=== PATIENT | female | born 1945 | race Caucasian/White ===

== ENCOUNTER 2023-04-17 12:20 | Outpatient (RCR) | payer MEDICARE, OTHER, SELFPAY | END 2023-04-17 23:59 | disposition home or self-care (01) | LOC: RPT 12:20 | PROVIDERS: ATTENDING PHYSICIAN Family Medicine | DX: H81.10 Benign paroxysmal vertigo, unspecified ear (principal); R42 Dizziness and giddiness; Z73.6 Limitation of activities due to disability; R26.2 Difficulty in walking, not elsewhere classified | CPT/HCPCS: 97112; 97163 ==

== ENCOUNTER 2023-04-28 10:00 | Outpatient (RCR) | payer MEDICARE, OTHER, SELFPAY | END 2023-04-28 23:59 | disposition home or self-care (01) | LOC: RPT 10:00 | PROVIDERS: ATTENDING PHYSICIAN Family Medicine | DX: H81.10 Benign paroxysmal vertigo, unspecified ear (principal); R42 Dizziness and giddiness; Z73.6 Limitation of activities due to disability | CPT/HCPCS: 97112 ==

== ENCOUNTER 2023-05-02 06:38 | Day surgery (SDC) | payer MEDICARE, OTHER, SELFPAY ==
[2023-05-02] VITALS (10 sets, daily range): BP systolic 2–180; BP diastolic 76–91; BMI 44.9
[2023-05-02] MEDS: NORMOSOL-R 1000 IV (13:46)
[2023-05-02] MEDS: DETROL LA 4 MG PO (16:48)
[2023-05-02] MEDS: Pyridium 200 MG PO (16:48)
[2023-05-07 17:32] LABS: Stone Analysis Mass 8 mg
== END 2023-05-02 17:40 | disposition home or self-care (01) ==
LOC: SDS 06:38
PROVIDERS: ATTENDING PHYSICIAN Surgery
DX: N20.0 Calculus of kidney (principal)
CPT/HCPCS: 52356; 74018; 76000; 82365; 93005; A4300; C1758; C1769; C1894; C2617

== ENCOUNTER → 2023-09-02 08:24 | Outpatient (REF) | payer MEDICARE, OTHER, SELFPAY | LOC: HWRAD 08:24 | PROVIDERS: ATTENDING PHYSICIAN Surgery; FAMILY PHYSICIAN Family Medicine | DX: N13.2 Hydronephrosis with renal and ureteral calculous obstruction (principal) | CPT/HCPCS: 76775 ==

== ENCOUNTER → 2023-12-16 13:12 | Outpatient (REF) | payer MEDICARE, OTHER, SELFPAY | LOC: HWWDC 13:12 | PROVIDERS: ATTENDING PHYSICIAN Family Medicine | DX: Z12.31 Encounter for screening mammogram for malignant neoplasm of breast (principal) | CPT/HCPCS: 77063; 77067 ==

== ENCOUNTER → 2024-03-22 08:45 | Outpatient (REF) | payer MEDICARE, OTHER, SELFPAY ==
[2024-03-22 09:44] LABS: % Basophils 0.4 % (0-2); % Eosinophils 3.4 % (0-6); % Immature Granulocytes 0.3 % (0-0.5); % Lymphocytes 25.6 % (20.5-51.1); % Monocytes 8.8 % (1.7-9.3); % Neutrophils 61.5 % (42.2-75.2); Absolute Eosinophils 0.2 10^3/uL (0-0.7); Absolute Lymphocytes 1.7 10^3/uL (1.2-3.4); Absolute Monocytes 0.6 10^3/uL (0.1-0.6); Absolute Neutrophils 4.1 10^3/uL (1.4-6.5); Hematocrit 44.3 % (37.0-47.0); Hemoglobin 14.1 g/dL (12.0-16.0); Mean Corp Hgb Conc. 31.8 g/dL (33.0-37.0); Mean Corpuscular Hgb 29.7 pg (27.0-31.0); Mean Corpuscular Volume 93.3 fL (81.0-99.0); Mean Platelet Volume 9.5 fL (7.4-10.4); Nucleated Red Blood Cells % 0 %; Platelet Count 242 10^3/uL (130-400); Red Blood Cell Count 4.75 10^6/uL (4.20-5.40); Red Cell Dist. Width 13.5 % (11.5-14.5); White Blood Cell Count 6.7 10^3/uL (4.8-10.8)
[2024-03-22 10:19] LABS: Glycohemoglobin (HgbA1c) 6.5 % (4.0-5.6)
[2024-03-22 10:26] LABS: ALT (SGPT) 50 U/L (0-35); AST (SGOT) 44 U/L (14-36); Albumin 3.9 g/dl (3.5-5.0); Alkaline Phosphatase 59 U/L (38-126); Blood Urea Nitrogen 16 mg/dl (7-17); Calcium 9.4 mg/dl (8.4-10.2); Carbon Dioxide 29 mmol/L (22-30); Chloride 102 mmol/L (98-107); Glucose 125 mg/dl (70-99); HDL Cholesterol 50 mg/dl; LDL Cholesterol, Calculated 94 mg/dl; Potassium 4.3 mmol/L (3.5-5.1); Sodium 140 mmol/L (135-145); Total Bilirubin 0.4 mg/dl (0.2-1.3); Total Cholesterol 169 mg/dl (50-199); Total Protein 6.9 g/dl (6.3-8.2); Triglyceride 128 mg/dl (10-149); Very Low Density Lipoprotein 25 mg/dl (0-30); eGFR > 60.00
[2024-03-22 10:48] LABS: TSH 1.09 uIU/ml (0.47-4.68)
== END ==
LOC: REG 08:45
PROVIDERS: ATTENDING PHYSICIAN Family Medicine
DX: Z00.00 Encounter for general adult medical examination without abnormal findings (principal); Z13.220 Encounter for screening for lipoid disorders; R79.89 Other specified abnormal findings of blood chemistry; E11.9 Type 2 diabetes mellitus without complications
CPT/HCPCS: 36415; 80053; 80061; 82043; 83036; 84443; 85025

== ENCOUNTER → 2024-04-12 10:31 | Outpatient (REF) | payer MEDICARE, OTHER, SELFPAY | LOC: EMG 10:31 | PROVIDERS: ATTENDING PHYSICIAN Physician Assistant; FAMILY PHYSICIAN Family Medicine | DX: M25.532 Pain in left wrist (principal); G56.01 Carpal tunnel syndrome, right upper limb | CPT/HCPCS: 95886; 95911 ==

== ENCOUNTER 2024-04-20 15:12 | Outpatient (RCR) | payer MEDICARE, OTHER, SELFPAY | END 2024-04-20 23:59 | disposition home or self-care (01) | LOC: ROT 15:12 | PROVIDERS: ATTENDING PHYSICIAN Physician Assistant; FAMILY PHYSICIAN Family Medicine | DX: S52.592D Other fractures of lower end of left radius, subsequent encounter for closed fracture with routine healing (principal); Z73.6 Limitation of activities due to disability; G56.03 Carpal tunnel syndrome, bilateral upper limbs | CPT/HCPCS: 97018; 97110; 97166; 97535 ==

== ENCOUNTER 2024-05-03 14:05 | Outpatient (RCR) | payer MEDICARE, OTHER, SELFPAY | END 2024-05-03 23:59 | disposition home or self-care (01) | LOC: ROT 14:05 | PROVIDERS: ATTENDING PHYSICIAN Physician Assistant; FAMILY PHYSICIAN Family Medicine | DX: S52.592D Other fractures of lower end of left radius, subsequent encounter for closed fracture with routine healing (principal); Z73.6 Limitation of activities due to disability; G56.03 Carpal tunnel syndrome, bilateral upper limbs; M19.042 Primary osteoarthritis, left hand | CPT/HCPCS: 97018; 97110 ==

== ENCOUNTER 2024-06-04 19:47 | Inpatient (IN) | payer MEDICARE, OTHER, SELFPAY ==
[2024-06-04] VITALS (7 sets, daily range): BP systolic 139–163; BP diastolic 63–95; BMI 39.6
[2024-06-04 11:22] LABS: % Basophils 0.2 % (0-2); % Eosinophils 0.3 % (0-6); % Immature Granulocytes 0.2 % (0-0.5); % Lymphocytes 7.3 % (20.5-51.1); % Monocytes 11.7 % (1.7-9.3); % Neutrophils 80.3 % (42.2-75.2); Absolute Lymphocytes 0.6 10^3/uL (1.2-3.4); Hematocrit 40.1 % (37.0-47.0); Hemoglobin 13.4 g/dL (12.0-16.0); Mean Corp Hgb Conc. 33.4 g/dL (33.0-37.0); Mean Corpuscular Hgb 29.7 pg (27.0-31.0); Mean Corpuscular Volume 88.9 fL (81.0-99.0); Mean Platelet Volume 10.3 fL (7.4-10.4); Nucleated Red Blood Cells % 0 %; Platelet Count 164 10^3/uL (130-400); Red Blood Cell Count 4.51 10^6/uL (4.20-5.40); Red Cell Dist. Width 13.8 % (11.5-14.5); White Blood Cell Count 8.8 10^3/uL (4.8-10.8)
[2024-06-04 11:31] LABS: ALT (SGPT) 58 U/L (0-35); AST (SGOT) 85 U/L (14-36); Albumin 3.2 g/dl (3.5-5.0); Alkaline Phosphatase 60 U/L (38-126); Blood Urea Nitrogen 36 mg/dl (7-17); Calcium 9.2 mg/dl (8.4-10.2); Carbon Dioxide 26 mmol/L (22-30); Chloride 101 mmol/L (98-107); Glucose 131 mg/dl (70-99); Lipase 34 U/L (23-300); Potassium 3.8 mmol/L (3.5-5.1); Sodium 136 mmol/L (135-145); Total Bilirubin 0.8 mg/dl (0.2-1.3); Total Protein 6.3 g/dl (6.3-8.2); eGFR > 60.00
--- NOTE | 2024-06-04 12:00 | ED.GENMED ---
History of Present Illness
<Cassie Rao, ACTIVITIES ATTENDANT - Last Filed: 06/05/24 10:27>
General
Chief Complaint: Weakness
Source: patient
Exam Limitations: none
Time Seen by Provider: 06/04/24 11:59
Nursing documentation reviewed up to this point in time: agreed with
History of Present Illness
History of Present Illness:
78-year-old female with history of neuropathy, vertigo, chronic bronchitis, CPAP, HTN, depression presents from [facility] for4 4 days of R flank pain, fever, chills, weakness, dry heaves, diarrhea. Last stool 2 hours ago. No known sick contacts,
no recent antibiotic use.
Past History
<Cassie Rao, ACTIVITIES ATTENDANT - Last Filed: 06/05/24 10:27>
Past History
ED Past Medical History: HTN, Other (Sleep apnea, uses CPAP) and Other (Kidney stones with lithotripsy)
ED Past Surgical History: Gynecological and Orthopedic
Social History
Tobacco: Non-smoker
Alcohol: Other
Drug: None
Personal:
Living: with family
Employment: Retired
Family History
Family History: Other
Review of Systems
<Cassie Rao, ACTIVITIES ATTENDANT - Last Filed: 06/05/24 10:27>
Review of Systems
Allergies reviewed?: Yes
All Other Systems: ROS reviewed and negative except as documented in HPI and ROS
Constitutional: Reports fever, fatigue and chills
Respiratory: Denies cough or trouble breathing
Cardiac: Denies chest pain
ABD/GI: Reports nausea, diarrhea and anorexia; Denies abdominal pain, bloody stools or black stools
: Reports flank pain (Right); Denies dysuria, frequency, difficulty voiding or urgency
Musculoskeletal: Reports no symptoms
Skin: Reports no symptoms
Neurological: Reports no symptoms
Phy Exam
<Cassie Rao, ACTIVITIES ATTENDANT - Last Filed: 06/05/24 10:27>
Physical Exam
Physical Exam:
GENERAL: No acute distress. A&Ox3.
CONSTITUTIONAL: Afebrile.
EYES: clear, conjunctivae normal
ENMT: Dry mucus membranes, Pharynx nl
RESPIRATORY: Regular respirations, nonlabored, lungs clear.
CARDIOVASCULAR: Regular rate and rhythm, no murmurs, no rubs.
GI: Soft, obese, nontender, normal BS
MUSCULOSKELETAL: Moves with ease. Well perfused. No edema
SKIN: Warm, dry, pink
PSYCH: Normal mood and affect. Well kept, interactive and appropriate
NEUROLOGIC: Awake, alert and oriented. No focal neurological deficits
Course
<Cassie Rao, ACTIVITIES ATTENDANT - Last Filed: 06/05/24 10:27>
Orders/Labs/Results
Orders:
Orders
06/04/24 11:08
Complete Blood Count/With Diff Urgent
Comprehensive Metabolic Panel Urgent
Glycohemoglobin (HgbA1c) Urgent
Lipase Urgent
06/04/24 11:59
0.9% Sodium Chloride 1000 ml [Nss] 1,000 ml IV BOLUS
06/04/24 14:19
Urinalysis Reflex To Culture Urgent
Date Specimen was Collected: 06/04/24
Time Specimen was Collected: 11:02
Urine Microscopic Reflex Cult Urgent
Urine Culture Urgent
MARK ANTHONY Source: U
Specimen Description:
Date Specimen was Collected: 06/04/24
Time Specimen was Collected: 11:02
06/04/24 14:39
CT Abd/pel Without Iv Or Oral Urgent
Comment:
Reason For Exam: Left flank pain, fever, chills, hematures
06/04/24 14:52
Ketorolac [Toradol] 15 mg IV NOW STA
06/04/24 Dinner
BRAT
At Your Request: Full Participation
06/04/24 16:46
CefTRIAXone [Rocephin] 2,000 mg IV NOW STA
06/04/24 16:52
Ondansetron Injectable [Zofran] 4 mg IV NOW STA
06/04/24 17:13
Sterile Water [Sterile Water For Injection] 20 ml .ROUTE .STK-MED
06/04/24 17:15
Ketorolac [Toradol] 15 mg .ROUTE .STK-MED ONE
06/04/24 18:18
Blood Culture Q30M
MARK ANTHONY Source: Blood/Venous
Specimen Description:
Blood Culture Q30M
MARK ANTHONY Source: Blood/Venous
Specimen Description:
06/04/24 19:02
STOOL [C difficile Antigen & Toxins] Routine
MARK ANTHONY Source: Feces/Stool
Specimen Description:
Stool Culture Routine
MARK ANHTONY Source: Feces/Stool
Specimen Description:
Stool For WBC Routine
MARK ANTHONY Source: Feces/Stool
Specimen Description:
06/04/24 19:09
Norovirus by PCR Routine
MARK ANTHONY Source: Feces/Stool
Specimen Description:
06/04/24 19:15
Admit/Transfer Patient As Directed
Co-Sign Provider:
Level of Care: Inpatient admission
Assign to:: Medical/Surgical
Physician / Group: luciana wan
Diagnosis: acute r pyelo, acute diarrhea conc viral vs infectious
Reason for Hospitalization: acute r pyelo, acute diarrhea conc viral vs infectious
Expected length of stay greater than two midnights?: Yes
ELOS- Estimated Length of Stay in days: 3
I certify the patient meets the requirements for IP care: Yes
Code Status As Directed
Resuscitation Status: Full Code
06/04/24 19:19
PRN Pain Medication Management As Directed
May give lesser potent ordered pain med per pt: Yes
preference::
Protocol:: Medication orders for pain may be administered in a
manner that supports deferring to patient preference
when the pt is:
- Requesting an ordered lesser potent pain medication.
Least to most potent pain medications are defined
as: acetaminophen < NSAID < tramadol < opioids
(morphine, oxycodone, hydromorphone).
- Requesting a lesser dose of the same medication IF
ORDERED.
- Requesting a less intrusive route of administration
if both routes are prescribed by the provider (PO <
IV).
06/04/24 19:20
Precautions As Directed
Type of Precautions: Contact
Comment: diarrhea unclear source
06/04/24 19:22
Add On- LAB Urgent
Tests Added?: [email or web address]
06/04/24 19:29
COVID-19 Antigen Urgent
Source: Nasal Swab
Influenza A+B Rapid Molecular Urgent
MARK ANTHONY Source: Nasal Swab
Specimen Description:
06/04/24 20:52
0.9% Sodium Chloride 1000 ml [Nss] 1,000 ml IV 100 mls/hr
Acetaminophen [Tylenol] 650 mg PO Q4HPRN PRN
Ondansetron Injectable [Zofran] 4 mg IV Q6HPRN PRN
Oxycodone [Roxicodone] 5 mg PO Q4HPRN PRN
06/04/24 20:52
Activity As Directed
Activity Level: As Tolerated
Intake/ Output As Directed
Frequency: Per unit guidelines
Vital Signs As Directed
Frequency: Per unit guidelines
DX Deep Vein Thrombosis Video Routine
06/04/24 22:00
Brinzolamide [Azopt 1% Ophthalmic Suspension] See Dose Instructions BOTH EYES TID
Latanoprost [Xalatan Ophthalmic Solution] See Dose Instructions BOTH EYES HS
06/04/24 23:22
Ketorolac [Toradol] 15 mg IV Q6HPRN PRN
06/05/24 06:00
MRI Abdomen [MR Abdomen W/o & W Contrast] IN AM
Comment:
Reason For Exam: pancreatic tail cyst
OK for patient to be off Cardiac Monitoring for MRI: Yes
Recent pill cam endoscopy?: No
Pacemaker/Defibrillator?: No
06/05/24 06:32
Complete Blood Count/With Diff IN AM
Comprehensive Metabolic Panel IN AM
06/05/24 08:00
Aspirin Low Dose EC [Aspir Low (Enteric Coated)] 81 mg PO DAILY
Budesonide/Formoterol 160/4.5 [Symbicort 160/4.5 Mcg Inhaler] 2 puff INH R BID
Cholecalciferol (Vitamin D3) [VITAMIN D3 (cholecalciferol)] 25 mcg PO DAILY
Citalopram [Celexa] 20 mg PO DAILY
Losartan [Cozaar] 50 mg PO DAILY
Multivitamin [Theragran] 1 tablet PO DAILY
06/05/24 18:00
CefTRIAXone [Rocephin] 1,000 mg IV Q24H
Enoxaparin Sodium [Lovenox] 40 mg SC QPM
06/06/24 06:00
Complete Blood Count/With Diff IN AM
Comprehensive Metabolic Panel IN AM
06/07/24 06:00
Complete Blood Count/With Diff IN AM
Comprehensive Metabolic Panel IN AM
Abnormal Lab Results
06/04/24 06/04/24
11:08 14:19
Absolute Neuts (auto) 7.0 H 10^3/uL
(1.4-6.5)
Absolute Lymphs (auto) 0.6 L 10^3/uL
(1.2-3.4)
Absolute Monos (auto) 1.0 H 10^3/uL
(0.1-0.6)
Neutrophils % 80.3 H %
(42.2-75.2)
Lymphocytes % 7.3 L %
(20.5-51.1)
Monocytes % 11.7 H %
(1.7-9.3)
BUN 36 H mg/dl
(7-17)
Glucose 131 H mg/dl
(70-99)
Hemoglobin A1c 6.6 H %
(4.0-5.6)
AST 85 H U/L
(14-36)
ALT 58 H U/L
(0-35)
Albumin 3.2 L g/dl
(3.5-5.0)
Ur Occult Blood Reflex 4+ A
(Negative)
Urine Nitrite (Reflex) Positive A
(Negative)
Leukocyte Esterase Rfl 3+ A
(Negative)
Urine RBC 40-50 A /HPF
(0-2)
Urine WBC (Reflex) 80-90 A /HPF
(0-5)
Urine Bacteria (Reflex) Many A
(Negative)
Urine Albumin (Reflex) 3+ A
(Neg - Trace)
06/04/24 11:08
06/04/24 11:08
Vital Signs
Initial and Last Documented VS:
Initial Vital Signs
Temp Pulse Resp BP Pulse Ox
99.3 F 83 16 139/95 94
06/04/24 10:58 06/04/24 10:58 06/04/24 10:58 06/04/24 10:58 06/04/24 10:58
Last Documented Vital Signs
Temp Pulse Resp BP Pulse Ox
99.7 F 78 18 161/81 92
06/05/24 07:30 06/05/24 08:07 06/05/24 07:30 06/05/24 08:07 06/05/24 07:30
Dimalt;Jacoby Hung, DO - Last Filed: 06/04/24 16:53>
Orders/Labs/Results
Orders:
Orders
06/04/24 11:08
Complete Blood Count/With Diff Urgent
Comprehensive Metabolic Panel Urgent
Glycohemoglobin (HgbA1c) Urgent
Lipase Urgent
06/04/24 11:59
0.9% Sodium Chloride 1000 ml [Nss] 1,000 ml IV BOLUS
06/04/24 14:19
Urinalysis Reflex To Culture Urgent
Date Specimen was Collected: 06/04/24
Time Specimen was Collected: 11:02
Urine Microscopic Reflex Cult Urgent
Urine Culture Urgent
MARK ANTHONY Source: U
Specimen Description:
Date Specimen was Collected: 06/04/24
Time Specimen was Collected: 11:02
06/04/24 14:39
CT Abd/pel Without Iv Or Oral Urgent
Comment:
Reason For Exam: Left flank pain, fever, chills, hematures
06/04/24 14:52
Ketorolac [Toradol] 15 mg IV NOW STA
06/04/24 Dinner
BRAT
At Your Request: Full Participation
06/04/24 16:46
CefTRIAXone [Rocephin] 2,000 mg IV NOW STA
06/04/24 16:52
Ondansetron Injectable [Zofran] 4 mg IV NOW STA
06/04/24 17:13
Sterile Water [Sterile Water For Injection] 20 ml .ROUTE .STK-MED
06/04/24 17:15
Ketorolac [Toradol] 15 mg .ROUTE .STK-MED ONE
06/04/24 18:18
Blood Culture Q30M
MARK ANTHONY Source: Blood/Venous
Specimen Description:
Blood Culture Q30M
MARK ANTHONY Source: Blood/Venous
Specimen Description:
06/04/24 19:02
STOOL [C difficile Antigen & Toxins] Routine
MARK ANTHONY Source: Feces/Stool
Specimen Description:
Stool Culture Routine
MARK ANTHONY Source: Feces/Stool
Specimen Description:
Stool For WBC Routine
MARK ANTHONY Source: Feces/Stool
Specimen Description:
06/04/24 19:09
Norovirus by PCR Routine
MARK ANTHONY Source: Feces/Stool
Specimen Description:
06/04/24 19:15
Admit/Transfer Patient As Directed
Co-Sign Provider:
Level of Care: Inpatient admission
Assign to:: Medical/Surgical
Physician / Group: luciana wan
Diagnosis: acute r pyelo, acute diarrhea conc viral vs infectious
Reason for Hospitalization: acute r pyelo, acute diarrhea conc viral vs infectious
Expected length of stay greater than two midnights?: Yes
ELOS- Estimated Length of Stay in days: 3
I certify the patient meets the requirements for IP care: Yes
Code Status As Directed
Resuscitation Status: Full Code
06/04/24 19:19
PRN Pain Medication Management As Directed
May give lesser potent ordered pain med per pt: Yes
preference::
Protocol:: Medication orders for pain may be administered in a
manner that supports deferring to patient preference
when the pt is:
- Requesting an ordered lesser potent pain medication.
Least to most potent pain medications are defined
as: acetaminophen < NSAID < tramadol < opioids
(morphine, oxycodone, hydromorphone).
- Requesting a lesser dose of the same medication IF
ORDERED.
- Requesting a less intrusive route of administration
if both routes are prescribed by the provider (PO <
IV).
06/04/24 19:20
Precautions As Directed
Type of Precautions: Contact
Comment: diarrhea unclear source
06/04/24 19:22
Add On- LAB Urgent
Tests Added?: [email or web address]
06/04/24 19:29
COVID-19 Antigen Urgent
Source: Nasal Swab
Influenza A+B Rapid Molecular Urgent
MARK ANTHONY Source: Nasal Swab
Specimen Description:
06/04/24 20:52
0.9% Sodium Chloride 1000 ml [Nss] 1,000 ml IV 100 mls/hr
Acetaminophen [Tylenol] 650 mg PO Q4HPRN PRN
Ondansetron Injectable [Zofran] 4 mg IV Q6HPRN PRN
Oxycodone [Roxicodone] 5 mg PO Q4HPRN PRN
06/04/24 20:52
Activity As Directed
Activity Level: As Tolerated
Intake/ Output As Directed
Frequency: Per unit guidelines
Vital Signs As Directed
Frequency: Per unit guidelines
DX Deep Vein Thrombosis Video Routine
06/04/24 22:00
Brinzolamide [Azopt 1% Ophthalmic Suspension] See Dose Instructions BOTH EYES TID
Latanoprost [Xalatan Ophthalmic Solution] See Dose Instructions BOTH EYES HS
06/04/24 23:22
Ketorolac [Toradol] 15 mg IV Q6HPRN PRN
06/05/24 06:00
MRI Abdomen [MR Abdomen W/o & W Contrast] IN AM
Comment:
Reason For Exam: pancreatic tail cyst
OK for patient to be off Cardiac Monitoring for MRI: Yes
Recent pill cam endoscopy?: No
Pacemaker/Defibrillator?: No
06/05/24 06:32
Complete Blood Count/With Diff IN AM
Comprehensive Metabolic Panel IN AM
06/05/24 08:00
Aspirin Low Dose EC [Aspir Low (Enteric Coated)] 81 mg PO DAILY
Budesonide/Formoterol 160/4.5 [Symbicort 160/4.5 Mcg Inhaler] 2 puff INH R BID
Cholecalciferol (Vitamin D3) [VITAMIN D3 (cholecalciferol)] 25 mcg PO DAILY
Citalopram [Celexa] 20 mg PO DAILY
Losartan [Cozaar] 50 mg PO DAILY
Multivitamin [Theragran] 1 tablet PO DAILY
06/05/24 18:00
CefTRIAXone [Rocephin] 1,000 mg IV Q24H
Enoxaparin Sodium [Lovenox] 40 mg SC QPM
06/06/24 06:00
Complete Blood Count/With Diff IN AM
Comprehensive Metabolic Panel IN AM
06/07/24 06:00
Complete Blood Count/With Diff IN AM
Comprehensive Metabolic Panel IN AM
Abnormal Lab Results
06/04/24 06/04/24
11:08 14:19
Absolute Neuts (auto) 7.0 H 10^3/uL
(1.4-6.5)
Absolute Lymphs (auto) 0.6 L 10^3/uL
(1.2-3.4)
Absolute Monos (auto) 1.0 H 10^3/uL
(0.1-0.6)
Neutrophils % 80.3 H %
(42.2-75.2)
Lymphocytes % 7.3 L %
(20.5-51.1)
Monocytes % 11.7 H %
(1.7-9.3)
BUN 36 H mg/dl
(7-17)
Glucose 131 H mg/dl
(70-99)
Hemoglobin A1c 6.6 H %
(4.0-5.6)
AST 85 H U/L
(14-36)
ALT 58 H U/L
(0-35)
Albumin 3.2 L g/dl
(3.5-5.0)
Ur Occult Blood Reflex 4+ A
(Negative)
Urine Nitrite (Reflex) Positive A
(Negative)
Leukocyte Esterase Rfl 3+ A
(Negative)
Urine RBC 40-50 A /HPF
(0-2)
Urine WBC (Reflex) 80-90 A /HPF
(0-5)
Urine Bacteria (Reflex) Many A
(Negative)
Urine Albumin (Reflex) 3+ A
(Neg - Trace)
06/04/24 11:08
06/04/24 11:08
Vital Signs
Initial and Last Documented VS:
Initial Vital Signs
Temp Pulse Resp BP Pulse Ox
99.3 F 83 16 139/95 94
06/04/24 10:58 06/04/24 10:58 06/04/24 10:58 06/04/24 10:58 06/04/24 10:58
Last Documented Vital Signs
Temp Pulse Resp BP Pulse Ox
99.7 F 78 18 161/81 92
06/05/24 07:30 06/05/24 08:07 06/05/24 07:30 06/05/24 08:07 06/05/24 07:30
<Cassie Rao ACTIVITIES ATTENDANT - Last Filed: 06/05/24 10:27>
MDM/Problems Addressed
Differential Diagnosis Includes:
Viral gastroenteritis, kidney stone, pyelonephritis, UTI
MDM/Problems Addressed:
78-year-old female with history of neuropathy, vertigo, chronic bronchitis, CPAP, HTN, depression presents from [facility] for4 4 days of R flank pain, fever, chills, weakness, dry heaves, diarrhea. Last stool 2 hours ago. No known sick contacts,
no recent antibiotic use.
Temp 99.3, NAD
12:10 p.m.
CBC normal
CMP BUN 36 otherwise unremarkable mild elevation AST, ALT chronic. IVF's infusing for mild dehydration
2:45 p.m.
U/A: 4+ occult blood, 3+leukocyte esterase, positive nitrites
CT ordered for possible kidney stone.
4:40 p.m.
IMPRESSION:
There is no hydronephrosis or obstructing renal calculus. There is a nonobstructing stone within the right kidney measuring 6.6 cm.
Mild asymmetric stranding along the right kidney which is nonspecific although can be seen with infection. Recommend correlation with urinalysis.
Colonic diverticulosis.
1.6 cm cystic focus along the pancreatic tail which represent a sidebranch IPMN, pseudocyst or cystic neoplasm. Consider MRI abdomen for further evaluation.
Will treat for pyelonephritis, Rocephin IV then DC on Cefpodoxime 200 mg BID
Case discussed with Dr. Hung who examined pt.
6:00 p.m.
Pt pain improved with Toradol. Offered admit or DC home, She and are not comfortable with her going home, will admit
Hospitalist notified of admission.
<Cassie Rao ACTIVITIES ATTENDANT - Last Filed: 06/05/24 10:27>
*Critical Care Note
Total Time (30-74mins, 75-104mins- exclusive of procedures): Not Applicable
ED Attending Note
<Cassie Rao ACTIVITIES ATTENDANT - Last Filed: 06/05/24 10:27>
-
Portions of this chart may have been created with voice recognition software.� Occasional wrong word or��sound alike� substitutions may have occurred due to the inherent limitations of voice recognition software.
<Jacoby Hung DO - Last Filed: 06/04/24 16:53>
ED Attending Note
Patient seen and examined by attending physician: Yes
I performed the substantive portion of visit, reviewed & personally made and approve the management plan that is documented in note by myself or CLARIBEL.: Yes
ED Attending Note:
Seen with ACTIVITIES ATTENDANT examined independently 78-year-old female with 4 days of flank pain nausea low-grade fevers has not been eating or drinking very much urine and CAT scan noted suspect she has upper tract infection with no obstructing stone will start on
antibiotics check urine culture give some antiemetics see how she is feeling before making decision on inpatient versus outpatient
Discharge Plan
Departure
Patient Disposition: Admit
Date of Disposition: 06/04/24
Time of Disposition: 18:09
Admit to: Med/Surg
Presentation/result/management discussed w/ accepting MD/DO: Hospitalist
Condition: Fair
Discharge Problem:
Acute pyelonephritis
Interventions
Interventions:
*Risk Screen - Suicide Last Done: 06/04/24 21:13
*General Assessment Last Done: 06/04/24 13:00
*Neglect/Abuse Screening Last Done: 06/04/24 10:58
*ED COVID-19 Vaccine History Last Done: 06/04/24 21:13
*Nursing Disposition Last Done: 06/04/24 23:00
ED- Cardiac Assessment Last Done: 06/04/24 13:00
ED- Neurological Assessment Last Done: 06/04/24 13:00
ED- Pulmonary Assessment Last Done: 06/04/24 13:00
Discharge Date and Time
Discharge Date/Time: 06/04/24 23:00
[2024-06-04] MEDS: NSS 1000 IV ×2 (12:17→22:16)
[2024-06-04 14:33] LABS: Urine Albumin 3+ (Neg - Trace); Urine Bilirubin Negative (Negative); Urine Character Slightly Cloudy (Clear); Urine Color Yellow; Urine Glucose Negative (Negative); Urine Ketone Negative (Negative); Urine Leukocyte 3+ (Negative); Urine Nitrite Positive (Negative); Urine Occult Blood 4+ (Negative); Urine Specific Gravity 1.015 (<1.030); Urine Urobilinogen Negative (Neg - 1+)
[2024-06-04 14:53] LABS: Urine Squamous Cell >30 /LPF (Few)
[2024-06-04 14:54] LABS: Urine Amorphous Seen; Urine Urothelial Cell 16-20 /LPF (FEW)
[2024-06-04 14:55] LABS: Urine Red Blood Cell 40-50 /HPF (0-2)
[2024-06-04 14:56] LABS: Urine White Cell 80-90 /HPF (0-5)
[2024-06-04 14:57] LABS: Urine Bacteria Many (Negative)
[2024-06-04] MEDS: ZOFRAN 4 MG IV (17:21)
[2024-06-04] MEDS: TORADOL 15 MG IV (17:22)
[2024-06-04] MEDS: ROCEPHIN 2000 MG IV (17:25)
--- NOTE | 2024-06-04 18:21 | HPS.HSE ---
Family Physician
-
Family Physician: Bridgett Ramirez
Chief Complaint
-
Right flank pain, headache, fever, nausea, chills, watery diarrhea x 5 days
History of Present Illness
78-year-old female complaining of right flank pain, headache, fever, chills, weakness, dry heaves and diarrhea for the past 5 days. Her last stool was approximately 2 hours prior to arrival this a.m. she reports her stool is completely water for
the past 5 days. She states she had family that visited this past weekend on Friday evening they went out and she had a vegetable pizza then Friday for breakfast had eaten out at a restaurant [place] and eggs. She then later on that day started with
right flank pain fever chills weakness dry heaves and watery diarrhea which has persisted for the past 5 days. She denies any sick contacts no other family members are sick currently.
She has only been drinking water, beef and chicken broth all week. She said she had temperatures of 103 for the past 4 days including last night for which she has been taking Tylenol. She did not have a fever this a.m. She had CT abdomen of her
pelvis in the ER showing some mild stranding of the right kidney likely right pyelonephritis also has a nonobstructing stone in the right kidney 6.6 cm with no hydro. She had history of a Hx right ureteroscopy/laser lithotripsy/stone extraction
with stent
On 04/18/2022 Dr. Sanchez for calcium oxalate kidney stones.
Past medical history includes hypertension, depression, benign positional vertigo, allergic rhinitis, glaucoma, osteoarthritis left knee, cholelithiasis, fatty liver, hyperparathyroidism, asthma, prediabetes
Medical History
Past Medical History
Past Medical History: Reports Other
Additional Past Medical History:
hypertension
depression
benign positional vertigo,
allergic rhinitis
glaucoma
osteoarthritis left knee
cholelithiasis
fatty liver
hyperparathyroidism
asthma
prediabetes
Past Surgical History: Reports Other
Additional Past Surgical History:
Hysterectomy and BSO 1996
Tubal ligation
Left ankle ORIF
Left total knee replacement 2017
Right knee arthroscopy 01/10/2021
Glaucoma surgery both eyes 10/10/2022 and 11/10/2022
Right ureteroscopy/laser lithotripsy/stone extraction with stent
On 04/18/2022 Dr. Sanchez for calcium oxalate kidney stones.
Social History
Tobacco: Non-smoker
Alcohol: None
Drug: None
Personal:
Living: With Family
Employment: Retired (principal web developer)
Family History
Family History: Other (No family history of renal calculi mother CVA father [place])
Allergies / Home Medications
Allergies reflects when Allergies were last updated in [facility].
Home Medications with original date entered in [facility]
Allergy/Medication List:
Allergies
Allergy/AdvReac Type Severity Reaction Status Date / Time
No Known Allergies Allergy Verified 06/04/24 11:01
Home Medications
cholecalciferol (vitamin D3) 25 mcg (1,000 unit) tablet 1,000 units PO DAILY Supplement 07/15/17
citalopram 20 mg tablet 20 mg PO DAILY Mental Health/Anxiety 07/15/17
brinzolamide 1 % eye drops,suspension 1 drp BOTH EYES TID 04/17/22
omega 8-pcn-qnn-fish oil 1,000 mg (120 mg-180 mg) capsule (Fish Oil) 1 cap PO DAILY 04/17/22
fluticasone furoate 200 mcg-vilanterol 25 mcg/dose inhalation powder (Breo Ellipta) 1 inh inhalation R DAILY 05/01/23
losartan 50 mg-hydrochlorothiazide 12.5 mg tablet 1 tab PO DAILY 05/01/23
aspirin 81 mg tablet,delayed release 81 mg PO DAILY 06/04/24
brimonidine 0.2 %-timolol 0.5 % eye drops 1 drp BOTH EYES BID 06/04/24
latanoprostene bunod 0.024 % eye drops (Vyzulta) 1 drp BOTH EYES HS 06/04/24
magnesium oxide 500 mg PO DAILY 06/04/24
therapeutic multivitamin 1 tab PO DAILY 06/04/24
Review of Systems
-
History Source: Patient and Family ( at bedside)
A 12 point ROS was completed and negative except as noted: Yes
Constitutional: Reports Fever (X 5 days last 1 06/03/2024 evening), Fatigue and Chills
EENT: Denies Sore Throat or Runny Nose
Respiratory: Denies Cough or Trouble Breathing
Cardiac: Denies Chest Pain, Palpitations or Syncope
Abdomen/GI: Reports Nausea and Diarrhea (Watery x 5 days); Denies Vomiting or Constipated
: Reports Dysuria and Flank Pain (Right); Denies Incontinence or Difficulty Voiding
Musculoskeletal: Denies Joint Pain or Edema
Skin: Denies Itching or Rash
Neurological: Denies Dizzy, Headache or Weakness
Endocrine: Reports No Symptoms
Hematologic/Lymphatic: Reports No Symptoms
Psych: Reports Calm
Physical Exam
Vital Signs
Vital Signs
Temp Pulse Resp BP Pulse Ox
99.3 F 83 16 146/63 93
06/04/24 10:58 06/04/24 10:58 06/04/24 10:58 06/04/24 17:00 06/04/24 17:15
Physical Exam
General: Pain; No Chills
HEENT: NormoCephalic, Anicteric, Moist mucous membranes, PERRLA, [place] Conjunctivae and No Ptosis
Respiratory: Clear; No Wheezes, Rales or Rhonchi
Cardiac: S1/S2 and Regular Rhythm; No Murmur, Rub, Gallop or Peripheral Edema
Breast: Deferred by me
GI: Soft, Non Tender, Non Distended and Normal Bowel Sounds
Genito-urinary: Costovertebral angle tend (Right flank)
Musculoskeletal: No Clubbing, No Cyanosis and No Edema
Skin: Warm and Dry; No Rash or Jaundice
Neuro: AO x 3, No Motor Deficits, Nonfocal/grossly intact, Cranial Nerves Intact and No Sensory Deficits; No Slurred Speech, Facial Droop or Tremors
Psych: Calm
Laboratory Results
-
06/04/24 11:08
06/04/24 11:08
Laboratory Results
Total Bilirubin 0.8 mg/dl (0.2-1.3) 06/04/24 11:08
AST 85 U/L (14-36) H 06/04/24 11:08
ALT 58 U/L (0-35) H 06/04/24 11:08
Alkaline Phosphatase 60 U/L (38-126) 06/04/24 11:08
Lipase 34 U/L (23-300) 06/04/24 11:08
Data Reviewed
-
CT Scan: Report Reviewed by me
Lab Data: Labs Reviewed by me
Impression/Plan
-
Impression/plan:
Admit to [facility]
#Acute RIGHT pyelonephritis
#Hx right ureteroscopy/laser lithotripsy/stone extraction with stent 04/18/2022 Dr. Sanchez
Right flank pain, fever, chills, weakness, dry heaves, diarrhea x 4 days
99.3F, 146/63
-IV Rocephin 2000 mg given in ER, continue IV Rocephin 1000 mg daily
-IV Zofran given in ER, continue Zofran as needed
-IV Toradol 15 mg given in ER, continue IV Toradol, Percocet moderate�severe pain
-IV NSS 1000 cc given in ER
- continue IV NSS 80 cc an hour
-Follow Urine and blood cultures x [address] abdomen pelvis without IV or oral contrast:
1. There is no hydronephrosis or obstructing renal calculus. There is a nonobstructing stone within the right kidney measuring 6.6 cm.
2. Mild asymmetric stranding along the right kidney which is nonspecific although can be seen with infection.
Recommend correlation with urinalysis.
3. Colonic diverticulosis.
4). 1.6 cm cystic focus along the pancreatic tail which represent a sidebranch IPMN, pseudocyst or cystic neoplasm.
Consider MRI abdomen for further evaluation.
#Acute diarrhea concern for possible norovirus/Salmonella
-Will check stool for norovirus, WBC, culture, C. difficile and toxins
-Recommend brat diet
#Incidental cystic focus pancreatic tail�unclear
-Will check MRI abdomen with and without contrast while inpatient
#Chronic transaminitis-fatty liver
CT abdomen:: Multiple hepatic cysts measuring up to 2.7 cm in the hepatic dome. Mild hepatomegaly measuring 23.1 cm.
#Hypertension
BP 146/63
-Continue losartan 50 mg
-Hold HCTZ 25 mg
#Depression/anxiety
-Continue citalopram 20 mg daily
#Glaucoma- with hx of procedures done in both eyes
-Continue brimonidine/timolol twice daily, brinzolamide 1 drop both eyes 3 times daily, advisable to 1 drop both eyes
-Patient may bring drops from home
#Asthma-no acute exacerbation
-Continue Breo Ellipta daily
#Hypomagnesemia
HOld Mag-Ox 500 mg daily with current diarrhea
#Prediabetes hx
BS 131, check HgbA1c
Other PMH:
Benign positional vertigo
Allergic rhinitis
Osteoarthritis left knee, cholelithiasis
Hyperparathyroidism
DVT prophylaxis
Subcu Lovenox
Full code
--- NOTE | 2024-06-04 18:42 | W.PN.UPDATE ---
Update Note
Progress Note Update
Patient seen in conjunction with NICOLLE. I agree with her findings on history and physical and concur with the assessment and plan.
Briefly, this is a 78 y.o female with past medical history of type 2 diabetes, hypertension, hyperlipidemia, asthma, sleep apnea presenting to the emergency department with 4 days of R flank pain, fever, chills, weakness, dry heaves, diarrhea. Last
stool 2 hours ago. No known sick contacts, no recent antibiotic use. Fever to 103 at home. Non-bloody diarrhea. Occured after eating at a restuarant but no one else came magdaleno with illness.
In the emergency department she was afebrile, with a temp of 99.3, blood pressure was 146/60 with a pulse of 83 and she was satting 93% on room air. CBC was unremarkable. Electrolytes were also unremarkable with normal BUN and creatinine. UA was
markedly positive. CT of the abdomen and pelvis showed no evidence of hydronephrosis but there was stranding of the right kidney. Incidental finding of a 1.6 cm cyst in the pancreatic tail was noted.
Assessment and plan,
1. Pyelonephritis - flank pain, positive u/a and CT scan showing R kidney stranding. No obstruction or other complication
- admit to med/surg
- urine cultures sent, blood cultures if spike fever
- continue IV ceftriaxone
- gentle hydration for now
2. Diarrhea - salmonella/ecoli vs viral
- check stool studies if she has continued loose stools
- covid/flu
3. HTN
- continue losartan
4. DM II- pre diabetes
- check a1c
5. Incidental pancreatic cystic lesion
- mri per rad recommendation
DVT PPX - lovenox sq
Code status - full code
[2024-06-04 19:52] LABS: COVID-19 Antigen Negative (Negative)
[2024-06-04] MEDS: ALPHAGAN 0.2% EYE DROPS 1 DROP OPHTH (22:18)
[2024-06-04] MEDS: AZOPT 1% OPHTHALMIC SUSPENSION 1 DROP BOTH EYES (22:18)
[2024-06-04] MEDS: TIMOPTIC 0.5% OPHTHALMIC SOLUTION 1 DROP OPHTH (22:18)
[2024-06-04] MEDS: XALATAN OPHTHALMIC SOLUTION 1 DROP BOTH EYES (22:19)
[2024-06-05 00:34] VITALS: BMI 46.4
--- NOTE | 2024-06-05 01:23 | PTCARENOTE ---
received patient from ER via [facility], she is AAOX3 admitted with acute right pyelo, acute diarrhea concern viral vs infectious. She has no pain ambulated to bed with steady gait, patient resting comfortably in room currently with call duncan in
reach. awaiting stool sample to be obtained to r/o infectious diarrhea, patient placed on contact precations per orders at this time.
[2024-06-05 07:06] LABS: % Basophils 0.3 % (0-2); % Eosinophils 1.3 % (0-6); % Immature Granulocytes 0.3 % (0-0.5); % Monocytes 16.7 % (1.7-9.3); % Neutrophils 69.4 % (42.2-75.2); Absolute Eosinophils 0.1 10^3/uL (0-0.7); Absolute Lymphocytes 0.8 10^3/uL (1.2-3.4); Absolute Monocytes 1.2 10^3/uL (0.1-0.6); Absolute Neutrophils 4.8 10^3/uL (1.4-6.5); Hemoglobin 12.3 g/dL (12.0-16.0); Mean Corp Hgb Conc. 32.4 g/dL (33.0-37.0); Mean Corpuscular Volume 89.6 fL (81.0-99.0); Nucleated Red Blood Cells % 0 %; Platelet Count 164 10^3/uL (130-400); Red Blood Cell Count 4.24 10^6/uL (4.20-5.40); White Blood Cell Count 6.9 10^3/uL (4.8-10.8)
[2024-06-05 07:30] VITALS: BP 161/81
[2024-06-05 07:40] LABS: ALT (SGPT) 49 U/L (0-35); AST (SGOT) 56 U/L (14-36); Albumin 2.8 g/dl (3.5-5.0); Alkaline Phosphatase 55 U/L (38-126); Blood Urea Nitrogen 32 mg/dl (7-17); Calcium 8.6 mg/dl (8.4-10.2); Carbon Dioxide 25 mmol/L (22-30); Chloride 105 mmol/L (98-107); Estimated Creatinine Clearance 71 ml/min; Glucose 113 mg/dl (70-99); Potassium 3.7 mmol/L (3.5-5.1); Sodium 136 mmol/L (135-145); Total Bilirubin 0.5 mg/dl (0.2-1.3); Total Protein 5.6 g/dl (6.3-8.2); eGFR > 60.00
[2024-06-05] MEDS: THERAGRAN 1 TABLET PO (08:07)
[2024-06-05] MEDS: NSS 1000 IV ×2 (08:07→20:14)
[2024-06-05] MEDS: ASPIR LOW (ENTERIC COATED) 81 MG PO (08:07)
[2024-06-05] MEDS: COZAAR 50 MG PO (08:07)
[2024-06-05] MEDS: VITAMIN D3 (cholecalciferol) 25 MCG PO (08:07)
[2024-06-05] MEDS: CELEXA 20 MG PO (08:12)
[2024-06-05] MEDS: ALPHAGAN 0.2% EYE DROPS 1 DROP OPHTH ×2 (08:13→20:15)
[2024-06-05] MEDS: AZOPT 1% OPHTHALMIC SUSPENSION 1 DROP BOTH EYES ×3 (08:14→20:14)
[2024-06-05] MEDS: TIMOPTIC 0.5% OPHTHALMIC SOLUTION 1 DROP OPHTH ×2 (08:14→20:15)
[2024-06-05 09:26] LABS: Glycohemoglobin (HgbA1c) 6.6 % (4.0-5.6)
[2024-06-05] MEDS: TORADOL 10 MG IV ×3 (09:53→22:34)
[2024-06-05] MEDS: NON-FORMULARY ITEM INH (12:16)
--- NOTE | 2024-06-05 12:23 | CM ---
Reviewed the chart notes and spoke with the patient at the bedside. The patient resides with her spouse in a two story home with one step to enter. The patient has a cane and CPAP machine. The patient reports no VN or SNF in the past. The
patient confirmed her pharmacy of choice is the [facility]. CM continues to be available to patient/family and is monitoring medical plan for needs at discharge.
Plan: Discharge to home when medically stable.
--- NOTE | 2024-06-05 13:32 | W.PN.HOSP.TC ---
Today's Communication/Plan
-
Continue IV fluids and antibiotics
Wait for cultures
Stool studies if able to be obtained
LR diet
Assessment / Plan
Assessment / Plan
78-year-old female with 4 days of right flank pain fever chills diarrhea
Awake alert oriented
Cardiovascular system S1-S2 appreciated
Abdomen mild right sided pain/tenderness
Chest clear to auscultation
No pedal edema
# Pyelonephritis with right flank pain
CT with 6 mm nonobstructing stone and right renal stranding. (Conclusions a 6 cm stone) radiologist alerted
Urine cultures coming back positive-E. coli
History of lithotripsy in 2022
Urine and blood culture sent
IV ceftriaxone started
Urology evaluation for the stone - Routine - friday
# Diarrhea
Stool studies if possible
COVID and flu-negative
# Hypertension
On losartan hydrochlorothiazide as outpatient
Hold HCTZ
# Bilateral glaucoma with with drainage implant September 2022-continue brimonidine-timolol, brinzolamide, Vyzulta eyedrops
# Sleep apnea-continue CPAP
# Asthma and chronic bronchitis-continue Breo Ellipta
# Prediabetes-check hemoglobin A1c
# Incidental pancreatic cystic lesion-MRI ordered
# Depression-continue Celexa
# Obesity with a BMI of 46
# DVT prophylaxis-subcutaneous heparin
# Full code
Discussed with nursing
Discussed with respiratory
Anticipated Discharge: 24 - 48 hours
Subjective/Interval History
-
Date of Service: June 05, 2024
Objective Data
-
Labs:
Laboratory Results
06/05/24
06:32
WBC 6.9
Hgb 12.3
Hct 38.0
Plt Count 164
Sodium 136
Potassium 3.7
Chloride 105
Carbon Dioxide 25
BUN 32 H
Creatinine 0.9
Glucose 113 H
Calcium 8.6
Total Bilirubin 0.5
AST 56 H
ALT 49 H
Alkaline Phosphatase 55
Vital Signs:
Vital Signs
Temp Pulse Resp BP Pulse Ox
99.7 F 78 18 161/81 92
06/05/24 07:30 06/05/24 08:07 06/05/24 07:30 06/05/24 08:07 06/05/24 07:30
I&O
06/04/24 06/05/24 06/06/24
06:59 06:59 06:59
Intake Total 800 / 800
Balance 800 / 800
[2024-06-05 15:08] VITALS: BP 164/76
[2024-06-05] MEDS: LOVENOX 40 MG SC (17:25)
[2024-06-05] MEDS: STERILE WATER FOR INJECTION 20 ML IV (17:28)
[2024-06-05] MEDS: ROCEPHIN 2000 MG IV (17:28)
--- NOTE | 2024-06-05 17:44 | RESPNOTE ---
Patient does not want to use our CPAP machine. Will not be bringing machine in from home. RN aware
[2024-06-05] MEDS: XALATAN OPHTHALMIC SOLUTION 1 DROP BOTH EYES (20:15)
[2024-06-05 22:10] VITALS: BP 156/76
[2024-06-06 05:36] LABS: % Basophils 0.3 % (0-2); % Eosinophils 3.2 % (0-6); % Immature Granulocytes 0.5 % (0-0.5); % Lymphocytes 15.5 % (20.5-51.1); % Monocytes 15.7 % (1.7-9.3); % Neutrophils 64.8 % (42.2-75.2); Absolute Eosinophils 0.2 10^3/uL (0-0.7); Absolute Lymphocytes 0.9 10^3/uL (1.2-3.4); Absolute Monocytes 0.9 10^3/uL (0.1-0.6); Absolute Neutrophils 3.9 10^3/uL (1.4-6.5); Hematocrit 37.7 % (37.0-47.0); Hemoglobin 11.9 g/dL (12.0-16.0); Mean Corp Hgb Conc. 31.6 g/dL (33.0-37.0); Mean Corpuscular Volume 91.7 fL (81.0-99.0); Mean Platelet Volume 9.9 fL (7.4-10.4); Nucleated Red Blood Cells % 0 %; Platelet Count 153 10^3/uL (130-400); Red Blood Cell Count 4.11 10^6/uL (4.20-5.40); Red Cell Dist. Width 13.9 % (11.5-14.5)
[2024-06-06 06:00] LABS: ALT (SGPT) 48 U/L (0-35); AST (SGOT) 46 U/L (14-36); Albumin 2.7 g/dl (3.5-5.0); Alkaline Phosphatase 66 U/L (38-126); Blood Urea Nitrogen 26 mg/dl (7-17); Calcium 8.6 mg/dl (8.4-10.2); Carbon Dioxide 26 mmol/L (22-30); Chloride 105 mmol/L (98-107); Estimated Creatinine Clearance 71 ml/min; Glucose 119 mg/dl (70-99); Potassium 3.6 mmol/L (3.5-5.1); Sodium 140 mmol/L (135-145); Total Bilirubin 0.6 mg/dl (0.2-1.3); Total Protein 5.5 g/dl (6.3-8.2); eGFR > 60.00
[2024-06-06 07:27] VITALS: BP 172/84
[2024-06-06] MEDS: ASPIR LOW (ENTERIC COATED) 81 MG PO (08:12)
[2024-06-06] MEDS: NON-FORMULARY ITEM 1 UNIT INH (08:12)
[2024-06-06] MEDS: COZAAR 50 MG PO (08:12)
[2024-06-06] MEDS: CELEXA 20 MG PO (08:12)
[2024-06-06] MEDS: THERAGRAN 1 TABLET PO (08:12)
[2024-06-06] MEDS: AZOPT 1% OPHTHALMIC SUSPENSION 1 DROP BOTH EYES ×3 (08:12→21:02)
[2024-06-06] MEDS: VITAMIN D3 (cholecalciferol) 25 MCG PO (08:12)
[2024-06-06] MEDS: MAGNESIUM OXIDE 500 MG PO (08:12)
[2024-06-06] MEDS: TIMOPTIC 0.5% OPHTHALMIC SOLUTION 1 DROP OPHTH ×2 (08:13→20:53)
[2024-06-06] MEDS: ALPHAGAN 0.2% EYE DROPS 1 DROP OPHTH ×2 (08:13→20:54)
[2024-06-06 08:24] VITALS: BP 165/84
[2024-06-06] MEDS: NSS IV (08:49)
[2024-06-06] MEDS: ATIVAN 0.5 MG IV (11:16)
[2024-06-06] MEDS: NSS (PRESERVATIVE FREE) 0.25 ML IV (11:17)
--- NOTE | 2024-06-06 12:45 | PTCARENOTE ---
pt received prn ativan this afternoon prior to MRI. See MAR for proper documentation
--- NOTE | 2024-06-06 14:02 | W.PN.HOSP.TC ---
Today's Communication/Plan
-
Continue IV antibiotics
Watch symptoms
Assessment / Plan
Assessment / Plan
78-year-old female with 4 days of right flank pain fever chills diarrhea
Awake alert oriented
Cardiovascular system S1-S2 appreciated
Abdomen mild right sided pain/tenderness, mild lumbar area tenderness
Chest clear to auscultation
No pedal edema
# Pyelonephritis with right flank pain
Patient has more pain today than yesterday
CT with 6 mm nonobstructing stone and right renal stranding. (Conclusions a 6 cm stone) radiologist alerted
Urine cultures coming back positive-E. coli
History of lithotripsy in 2022
Urine and blood culture sent
IV ceftriaxone started
If patient continues to have pain consider urology to evaluate on Friday
Continue antibiotics IV for now, pain control with Toradol
# Diarrhea-resolved
# Hypertension
On losartan hydrochlorothiazide as outpatient
Hold HCTZ
# Bilateral glaucoma with with drainage implant September 2022-continue brimonidine-timolol, brinzolamide, Vyzulta eyedrops
# Sleep apnea-continue CPAP
# Asthma and chronic bronchitis-continue Breo Ellipta
# Diabetes-diet controlled. Hemoglobin A1c 6.6
# Incidental pancreatic cystic [id number] foci in pancreas no enhancement likely represent benign cystic masses pseudocyst or and or intraductal papillary mucinous neoplasm. Annual MRI until age 82
# Fatty liver
# Depression-continue Celexa
# Obesity with a BMI of 46
# Hypoalbuminemia
# DVT prophylaxis-subcutaneous heparin
# Full code
Discussed with nursing
Discussed with family at bedside
Anticipated Discharge: Within 24 hours
Subjective/Interval History
-
Date of Service: June 06, 2024
Objective Data
-
Labs:
Laboratory Results
06/06/24
04:55
WBC 6.0
Hgb 11.9 L
Hct 37.7
Plt Count 153
Sodium 140
Potassium 3.6
Chloride 105
Carbon Dioxide 26
BUN 26 H
Creatinine 0.9
Glucose 119 H
Calcium 8.6
Total Bilirubin 0.6
AST 46 H
ALT 48 H
Alkaline Phosphatase 66
Vital Signs:
Vital Signs
Temp Pulse Resp BP Pulse Ox
98.5 F 75 16 165/84 93
06/06/24 07:27 06/06/24 08:24 06/06/24 08:14 06/06/24 08:24 06/06/24 12:36
I&O
06/05/24 06/06/24 06/07/24
06:59 06:59 06:59
Intake Total 800 / 800 1859
Balance 800 / 800 1859
[2024-06-06 15:30] VITALS: BP 177/83
[2024-06-06] MEDS: LOVENOX 40 MG SC (17:33)
[2024-06-06] MEDS: STERILE WATER FOR INJECTION 20 ML IV (17:34)
[2024-06-06] MEDS: ROCEPHIN 2000 MG IV (17:34)
[2024-06-06] MEDS: XALATAN OPHTHALMIC SOLUTION 1 DROP BOTH EYES (21:01)
[2024-06-06 23:05] VITALS: BP 165/79
[2024-06-07 06:51] LABS: % Basophils 0.8 % (0-2); % Eosinophils 3.3 % (0-6); % Immature Granulocytes 0.9 % (0-0.5); % Lymphocytes 16.8 % (20.5-51.1); % Monocytes 12.6 % (1.7-9.3); % Neutrophils 65.6 % (42.2-75.2); Absolute Basophils 0.1 10^3/uL (0-0.2); Absolute Eosinophils 0.2 10^3/uL (0-0.7); Absolute Immature Granulocytes 0.1 10^3/uL (0-0.05); Absolute Lymphocytes 1.1 10^3/uL (1.2-3.4); Absolute Monocytes 0.8 10^3/uL (0.1-0.6); Absolute Neutrophils 4.3 10^3/uL (1.4-6.5); Hematocrit 36.5 % (37.0-47.0); Mean Corp Hgb Conc. 32.9 g/dL (33.0-37.0); Mean Corpuscular Hgb 29.5 pg (27.0-31.0); Mean Corpuscular Volume 89.7 fL (81.0-99.0); Mean Platelet Volume 9.5 fL (7.4-10.4); Nucleated Red Blood Cells % 0 %; Platelet Count 204 10^3/uL (130-400); Red Blood Cell Count 4.07 10^6/uL (4.20-5.40); Red Cell Dist. Width 13.7 % (11.5-14.5); White Blood Cell Count 6.6 10^3/uL (4.8-10.8)
[2024-06-07 07:06] LABS: ALT (SGPT) 44 U/L (0-35); AST (SGOT) 39 U/L (14-36); Albumin 2.7 g/dl (3.5-5.0); Alkaline Phosphatase 66 U/L (38-126); Blood Urea Nitrogen 17 mg/dl (7-17); Calcium 8.9 mg/dl (8.4-10.2); Carbon Dioxide 29 mmol/L (22-30); Chloride 105 mmol/L (98-107); Estimated Creatinine Clearance 91 ml/min; Glucose 114 mg/dl (70-99); Potassium 3.9 mmol/L (3.5-5.1); Sodium 139 mmol/L (135-145); Total Bilirubin 0.4 mg/dl (0.2-1.3); Total Protein 5.5 g/dl (6.3-8.2); eGFR > 60.00
[2024-06-07 07:15] VITALS: BP 177/88
[2024-06-07] MEDS: NON-FORMULARY ITEM 1 UNIT INH (07:58)
[2024-06-07] MEDS: ASPIR LOW (ENTERIC COATED) 81 MG PO (08:04)
[2024-06-07] MEDS: CELEXA 20 MG PO (08:04)
[2024-06-07] MEDS: THERAGRAN 1 TABLET PO (08:04)
[2024-06-07] MEDS: MAGNESIUM OXIDE 500 MG PO (08:04)
[2024-06-07] MEDS: VITAMIN D3 (cholecalciferol) 25 MCG PO (08:04)
[2024-06-07] MEDS: COZAAR 50 MG PO (08:04)
[2024-06-07] MEDS: TIMOPTIC 0.5% OPHTHALMIC SOLUTION 1 DROP OPHTH ×2 (08:05→21:12)
[2024-06-07] MEDS: AZOPT 1% OPHTHALMIC SUSPENSION 1 DROP BOTH EYES ×3 (08:05→21:11)
[2024-06-07] MEDS: ALPHAGAN 0.2% EYE DROPS 1 DROP OPHTH ×2 (08:06→21:11)
--- NOTE | 2024-06-07 09:30 | PTCARENOTE ---
Addendum entered by Patricia Acevedo RN 06/07/24 10:10:
patient changed to diet and will obtain BS AC and HS.
Original Note:
received patient this am, just ambulated out of BR, voices no concerns at this time. BP 177/88, am meds given. keren. diet well. resp. shallow, trace edema. patient is hoping to go home today.
--- NOTE | 2024-06-07 09:32 | W.PN.UPDATE ---
Update Note
Progress Note Update
I saw and evaluated the patient. I reviewed the resident�s note and agree with findings and plan as documented in the resident�s note.
R flank pain improved from yesterday.
Gen: NAD, AAOx3.
Eyes: EOMI, PERRLA, no scleral icterus.
Neck: supple.
CV: RRR, +S1/S2, no m/r/g.
Resp: CTAB, no rales, wheezes, or rhonchi.
Abd: +BS, soft, NT, ND
Skin: No rashes.
Neuro: CN 2-12 intact, non-focal.
MSK: No R-sided CVA TTP
Psych: Normal mood and affect.
06/06/24 11:11 Feces/Stool Salmonella/Shigella Culture - Preliminary
Culture in Progress
06/06/24 11:11 Feces/Stool Campylobacter Culture - Preliminary
Culture in Progress
06/06/24 11:11 Feces/Stool Shiga Toxin Test - Final
No E. coli Shiga Toxin 1 or 2 detected.
06/04/24 18:18 Blood/Venous Blood Culture - Preliminary
No Growth in 48 hours- Final report to follow
06/04/24 18:18 Blood/Venous Blood Culture - Preliminary
No Growth in 48 hours- Final report to follow
06/06/24 11:11 Feces/Stool - Final
Negative for Norovirus GI and GII.
06/06/24 11:11 Feces/Stool Stool Leukocytes - Final
06/06/24 11:11 Feces/Stool C. difficile GDH Antigen & Toxins - Final
Negative for toxigenic C.difficile
06/04/24 14:19 Urine Urine Culture - Final
Escherichia coli
06/04/24 19:29 Nasal Swab Influenza Types A & B (BABS) - Final
Negative for Influenza A & B, NAAT
Negative results must be combined with clinical observations
and patient history.
Nucleic Acid Amplification test (NAAT)performed on the
[employer] NOW platform.
CT A/P: No hydronephrosis or obstructing renal calculus. There is a nonobstructing stone in the right kidney measuring 6.6 mm.
Acute Pyelonephritis:
-UCx with pansensitive E coli, BCxs NGTD
-afebrile, no leukocytosis
-cont Rocephin
-cont pain control
Other problems:
Essential Hypertension: cont Losartan, restart HCTZ
B/L glaucoma: drainage implant September 2022, continue brimonidine-timolol, brinzolamide, Vyzulta eyedrops
MAYRA: continue CPAP
Asthma and chronic bronchitis: continue Breo Ellipta
DM2: a1c 6.6%. Change diet to diabetic diet. Initiate SSI/AccuChecks.
Incidental pancreatic cystic lesion: Annual MRI until age 82
Depression: continue Celexa
Morbid obesity due to excess calories
FULL/heparin
--- NOTE | 2024-06-07 10:36 | W.PN.HOSP.TC ---
Today's Communication/Plan
-
Continue monitor for any further flank pain. Continue antibiotics.
Assessment / Plan
Assessment / Plan
Assessment:
78-year-old female with a past medical history of hypertension, prediabetes, asthma, chronic bronchitis, sleep apnea, obesity, depression presented to the [facility] ED complaining of right flank pain that came with a headache, fever, chills and
weakness. Patient had a CT abdomen in the ER that showed mild stranding of the right kidney likely secondary to pyelonephritis along with a nonobstructing stone in the right kidney with no hydronephrosis. Patient also has a history of right
ureteroscopy, laser lithotripsy, stone extraction with stent on 04/18/[address] Sanchez for calcium oxalate stones. Patient was started on IV antibiotics, IV fluids and supportive therapy. Patient continued to get better with treatment.
Patient underwent MRI of the abdomen due to an incidental finding on her pancreas. Found to have cystic foci within the pancreas likely to represent benign cystic masses. Was advised to follow-up and get MRI annually until age of 82 as long as
these remain stable.
CT Abd/pel Without Iv Or Oral (06/04/2024):
There is no hydronephrosis or obstructing renal calculus. There is a nonobstructing stone in the right kidney measuring 6.6 mm.
Mild asymmetric stranding along the right kidney which is nonspecific although can be seen with infection. Recommend correlation with urinalysis.
Colonic diverticulosis.
1.6 cm cystic focus along the pancreatic tail which represent a sidebranch IPMN, pseudocyst or cystic neoplasm. Consider MRI abdomen for further evaluation.
MR Abdomen W/o & W Contrast (06/06/2024):
Cholelithiasis. There are no MR findings to suggest acute cholecystitis.
No evidence for biliary ductal dilation. No evidence for bile duct calculus.
Cystic foci within the pancreas, the largest in the distal tail the pancreas, with no evidence for enhancement. These likely represent benign cystic masses with main differential considerations of pseudocyst and/or intraductal papillary mucinous
neoplasms. Advise annual MR follow-up until the age of 80 years, as long as these remain stable.
Fatty infiltration the liver.
Plan:
# Pyelonephritis with right flank pain
-Patient has more pain today than yesterday
-CT abdomen/pelvis findings as above
-Acute pyelonephritis most likely cause of symptoms
-Urine cultures positive for-E. coli
-History of lithotripsy in 2022
-Urine and blood culture sent
-Blood cultures negative
-Continue IV ceftriaxone, no IV fluids at this time
-Pain control with Toradol
# Diarrhea
-resolved
-Stool cultures negative for C. difficile and norovirus
-Salmonella/Shigella/Campylobacter cultures in progress
# Hypertension
-Continue losartan, holding HCTZ
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
-continue brimonidine-timolol, brinzolamide, Vyzulta eyedrops
# Sleep apnea
-continue CPAP
# Asthma and chronic bronchitis
-continue Breo Ellipta
# Diabetes
-diet controlled
-Hemoglobin A1c 6.6
# Incidental pancreatic cystic lesion
-MRI-cystic foci in pancreas no enhancement likely represent benign cystic masses pseudocyst or and or intraductal papillary mucinous neoplasm. Annual MRI until age 80
-Talked with patient regarding further follow-up
-Patient aware
# Depression
-continue Celexa
# Obesity with a BMI of 46
-Along with fatty liver disease
# Hypoalbuminemia
DVT prophylaxis-subcutaneous heparin
Full code
Discussed with nursing
Discussed with family at bedside
Anticipated Discharge: Within 24 hours
Subjective/Interval History
-
Date of Service: June 07, 2024
Patient has been feeling much better than before. Says that her right flank pain has returned. Describes it as a 4 out of 10. Says pain medication had completely got rid of the pain and she has not had pain medication since late last night. Was
a bit worried that it might be something else going on.
Objective Data
-
Labs:
Laboratory Results
06/07/24
05:50
WBC 6.6
Hgb 12.0
Hct 36.5 L
Plt Count 204 D
Sodium 139
Potassium 3.9
Chloride 105
Carbon Dioxide 29
BUN 17
Creatinine 0.7
Glucose 114 H
Calcium 8.9
Total Bilirubin 0.4
AST 39 H
ALT 44 H
Alkaline Phosphatase 66
Vital Signs:
Vital Signs
Temp Pulse Resp BP Pulse Ox
98.2 F 78 17 177/88 92
06/07/24 07:15 06/07/24 08:04 06/07/24 07:15 06/07/24 08:04 06/07/24 10:11
I&O
06/06/24 06/07/24 06/08/24
06:59 06:59 06:59
Intake Total 1859 960 / 960
Balance 1859 960 / 960
Review of Systems
-
History Source: Patient
Constitutional: Denies Fever or Chills
EENT: Reports No Symptoms Reported
Respiratory: Denies Cough or Wheezing
Cardiac: Denies Chest Pain, Palpitations or Syncope
Abdomen/GI: Denies Abdominal Pain, Nausea, Vomiting or Diarrhea
Genitourinary: Reports Flank Pain (Right sided flank pain (4 /10)); Denies Dysuria, Incontinence or Difficulty Voiding
Skin: Reports No Symptoms
Neuro: Reports No Symptoms
Hematologic / Lymphatic: Reports No Symptoms
Physical Exam
-
General: Well Developed, Well Nourished, No Apparent Distress, Comfortable and Conversant
HEENT: Normocephalic and Atraumatic
Respiratory: Clear to Auscultation and Non Labored Respirations
Cardiac: Regular Rhythm and S1/S2
GI: Soft, Nontender and Nondistended
Genito-urinary: Costovertebral Angle Tend (No further pain upon palpation)
Musculoskeletal: No Clubbing, No Cyanosis and No Edema
Skin: Warm
Neuro: Awake, Alert and Oriented
Psych: Calm
Data Reviewed
-
Labs: Labs Reviewed by me, Discussed with Physician, Discussed with Nurse and Discussed with Patient
[2024-06-07 12:15] LABS: Glucose - Point of Care 99 mg/dl (70-99)
[2024-06-07] MEDS: ORETIC 25 MG PO (13:39)
[2024-06-07] MEDS: TYLENOL 650 MG PO (13:44)
--- NOTE | 2024-06-07 13:45 | PTCARENOTE ---
patient c/o frontal headache, Tylenol po given as ordered.
[2024-06-07 15:05] VITALS: BP 176/87
--- NOTE | 2024-06-07 16:42 | CM ---
Patient seen at bedside
IMM explained & signed. In chart
PLAN: Discharge when medically stable, home, no needs anticipated
to transport
[2024-06-07 17:54] LABS: Glucose - Point of Care 103 mg/dl (70-99)
[2024-06-07] MEDS: LOVENOX 40 MG SC (17:54)
[2024-06-07] MEDS: ROCEPHIN 2000 MG IV (17:55)
[2024-06-07] MEDS: STERILE WATER FOR INJECTION 20 ML IV (17:56)
[2024-06-07] MEDS: XALATAN OPHTHALMIC SOLUTION 1 DROP BOTH EYES (21:12)
[2024-06-07 21:21] LABS: Glucose - Point of Care 128 mg/dl (70-99)
[2024-06-07 23:35] VITALS: BP 199/110
[2024-06-07 23:40] VITALS: BP 190/84
[2024-06-07 23:50] VITALS: BP 199/110
[2024-06-08 00:45] VITALS: BP 177/86
--- NOTE | 2024-06-08 06:20 | W.PN.HOSP.TC ---
Today's Communication/Plan
-
Patient to get ultrasound of her kidneys. Continue monitoring for any further changes including worsening pain. Continue current antibiotics
Assessment / Plan
Assessment / Plan
Assessment:
78-year-old female with a past medical history of hypertension, prediabetes, asthma, chronic bronchitis, sleep apnea, obesity, depression presented to the [place] ED complaining of right flank pain that came with a headache, fever, chills and
weakness. Patient had a CT abdomen in the ER that showed mild stranding of the right kidney likely secondary to pyelonephritis along with a nonobstructing stone in the right kidney with no hydronephrosis. Patient also has a history of right
ureteroscopy, laser lithotripsy, stone extraction with stent on 04/18/[address] Sanchez for calcium oxalate stones. Patient was started on IV antibiotics, IV fluids and supportive therapy. Patient continued to get better with treatment.
Patient underwent MRI of the abdomen due to an incidental finding on her pancreas. Found to have cystic foci within the pancreas likely to represent benign cystic masses. Was advised to follow-up and get MRI annually until age of 82 as long as
these remain stable.
CT Abd/pel Without Iv Or Oral (06/04/2024):
There is no hydronephrosis or obstructing renal calculus. There is a nonobstructing stone in the right kidney measuring 6.6 mm.
Mild asymmetric stranding along the right kidney which is nonspecific although can be seen with infection. Recommend correlation with urinalysis.
Colonic diverticulosis.
1.6 cm cystic focus along the pancreatic tail which represent a sidebranch IPMN, pseudocyst or cystic neoplasm. Consider MRI abdomen for further evaluation.
MR Abdomen W/o & W Contrast (06/06/2024):
Cholelithiasis. There are no MR findings to suggest acute cholecystitis.
No evidence for biliary ductal dilation. No evidence for bile duct calculus.
Cystic foci within the pancreas, the largest in the distal tail the pancreas, with no evidence for enhancement. These likely represent benign cystic masses with main differential considerations of pseudocyst and/or intraductal papillary mucinous
neoplasms. Advise annual MR follow-up until the age of 80 years, as long as these remain stable.
Fatty infiltration the liver.
Plan:
# Pyelonephritis with right flank pain
-Patient has more pain today than yesterday
-CT abdomen/pelvis findings as above
-Acute pyelonephritis most likely cause of symptoms
-Urine cultures positive for-E. coli
-History of lithotripsy in 2022
-Urine and blood culture sent
-Blood cultures negative
-Continue IV ceftriaxone, no IV fluids at this time
-Pain control with Toradol
-Due to continued right flank pain, will get ultrasound of the kidneys
-Will consult urology to help with further management, input appreciated
# Diarrhea
-resolved
-Stool cultures negative for C. difficile and norovirus
-Salmonella/Shigella culture is negative
-Campylobacter cultures in progress
# Hypertension
-Patient's blood pressure not under control with current medications
-Dose of losartan increased to 100 mg daily, restarted HCTZ yesterday as well (will continue)
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
-continue brimonidine-timolol, brinzolamide, Vyzulta eyedrops
# Sleep apnea
-continue CPAP from home as possible, possibly causing her increased blood pressure
# Asthma and chronic bronchitis
-continue Breo Ellipta
# Diabetes
-diet controlled
-Hemoglobin A1c 6.6
-diet changed to diabetic diet
-SSI/Accuchecks initiated
# Incidental pancreatic cystic lesion
-MRI-cystic foci in pancreas no enhancement likely represent benign cystic masses pseudocyst or and or intraductal papillary mucinous neoplasm. Annual MRI until age 80
-Talked with patient regarding further follow-up
-Patient aware
# Depression
-continue Celexa
# Obesity with a BMI of 46
-Along with fatty liver disease
# Hypoalbuminemia
DVT prophylaxis-subcutaneous heparin
Full code
Anticipated Discharge: Within 24 hours
Subjective/Interval History
-
Date of Service: June 08, 2024
Patient states that she has been having increased pain in her right flank. She took some Tylenol this morning for fever which also seem to help with the back pain. Reports no other changes from yesterday. She is a bit worried that her pain is not
resolving with current treatment.
Objective Data
-
Labs:
Laboratory Results
06/08/24
06:18
WBC Pending
Hgb Pending
Hct Pending
Plt Count Pending
Sodium Pending
Potassium Pending
Chloride Pending
Carbon Dioxide Pending
BUN Pending
Creatinine Pending
Glucose Pending
Calcium Pending
Total Bilirubin Pending
AST Pending
ALT Pending
Alkaline Phosphatase Pending
Vital Signs:
Vital Signs
Temp Pulse Resp BP Pulse Ox
99.1 F 76 17 177/86 91
06/07/24 23:50 06/07/24 23:50 06/07/24 23:50 06/08/24 00:45 06/07/24 23:50
I&O
06/06/24 06/07/24 06/08/24
06:59 06:59 06:59
Intake Total 0 / 0 960 / 960 1200 / 1200
Balance 1859 / 0 960 / 960 1200 / 1200
Review of Systems
-
History Source: Patient
Constitutional: Denies Fever or Chills
EENT: Reports No Symptoms Reported
Respiratory: Denies Cough or Wheezing
Cardiac: Denies Chest Pain, Palpitations or Syncope
Abdomen/GI: Denies Abdominal Pain, Nausea, Vomiting or Diarrhea
Genitourinary: Reports Flank Pain (Right sided flank pain, 2/10 on examination, has taken Tylenol this morning); Denies Dysuria, Incontinence or Difficulty Voiding
Skin: Reports No Symptoms
Neuro: Reports No Symptoms
Hematologic / Lymphatic: Reports No Symptoms
Physical Exam
-
General: Well Developed, Well Nourished and Conversant
HEENT: Normocephalic and Atraumatic
Respiratory: Clear to Auscultation and Non Labored Respirations
Cardiac: Regular Rhythm and S1/S2
GI: Soft, Nontender and Nondistended
Genito-urinary: Costovertebral Angle Tend (Rates the pain as 2 out of 10 on the right side, took Tylenol this morning which relieved the pain)
Musculoskeletal: No Clubbing, No Cyanosis and No Edema
Skin: Warm
Neuro: Awake, Alert and Oriented
Psych: Calm
Data Reviewed
-
Labs: Labs Reviewed by me, Discussed with Physician and Discussed with Patient
[2024-06-08 07:25] VITALS: BP 185/91
[2024-06-08 07:25] LABS: Glucose - Point of Care 132 mg/dl (70-99)
[2024-06-08] MEDS: NON-FORMULARY ITEM 1 UNIT INH (07:28)
[2024-06-08 07:43] LABS: Hematocrit 36.7 % (37.0-47.0); Hemoglobin 12.2 g/dL (12.0-16.0); Mean Corp Hgb Conc. 33.2 g/dL (33.0-37.0); Mean Corpuscular Hgb 29.4 pg (27.0-31.0); Mean Corpuscular Volume 88.4 fL (81.0-99.0); Mean Platelet Volume 9.7 fL (7.4-10.4); Platelet Count 273 10^3/uL (130-400); Red Blood Cell Count 4.15 10^6/uL (4.20-5.40); Red Cell Dist. Width 13.5 % (11.5-14.5); White Blood Cell Count 7.1 10^3/uL (4.8-10.8)
[2024-06-08 08:02] LABS: ALT (SGPT) 40 U/L (0-35); AST (SGOT) 34 U/L (14-36); Albumin 2.9 g/dl (3.5-5.0); Alkaline Phosphatase 72 U/L (38-126); Blood Urea Nitrogen 14 mg/dl (7-17); Calcium 9.1 mg/dl (8.4-10.2); Carbon Dioxide 30 mmol/L (22-30); Chloride 101 mmol/L (98-107); Estimated Creatinine Clearance 91 ml/min; Glucose 122 mg/dl (70-99); Potassium 3.5 mmol/L (3.5-5.1); Sodium 137 mmol/L (135-145); Total Bilirubin 0.5 mg/dl (0.2-1.3); Total Protein 5.9 g/dl (6.3-8.2); eGFR > 60.00
[2024-06-08] MEDS: ORETIC 25 MG PO (08:07)
[2024-06-08] MEDS: TYLENOL 650 MG PO (08:08)
[2024-06-08] MEDS: COZAAR 50 MG PO ×2 (08:09→10:44)
[2024-06-08] MEDS: CELEXA 20 MG PO (08:09)
[2024-06-08] MEDS: ASPIR LOW (ENTERIC COATED) 81 MG PO (08:09)
[2024-06-08] MEDS: VITAMIN D3 (cholecalciferol) 25 MCG PO (08:09)
[2024-06-08] MEDS: MAGNESIUM OXIDE 500 MG PO (08:09)
[2024-06-08] MEDS: THERAGRAN 1 TABLET PO (08:09)
[2024-06-08] MEDS: AZOPT 1% OPHTHALMIC SUSPENSION 1 DROP BOTH EYES ×3 (08:10→21:43)
[2024-06-08] MEDS: ALPHAGAN 0.2% EYE DROPS 1 DROP OPHTH ×2 (08:10→19:48)
[2024-06-08] MEDS: TIMOPTIC 0.5% OPHTHALMIC SOLUTION 1 DROP OPHTH ×2 (08:11→19:48)
--- NOTE | 2024-06-08 08:22 | PTCARENOTE ---
BP 185/91 this AM, temp 100.8, tylenol and AM meds administered. BP has been running high for days here, MD and resident made aware. No new orders at this time.
--- NOTE | 2024-06-08 10:19 | W.PN.UPDATE ---
Update Note
Progress Note Update
I saw and evaluated the patient. I reviewed the resident�s note and agree with findings and plan as documented in the resident�s note.
R flank pain similar to yesterday.
Gen: NAD, AAOx3.
Eyes: EOMI, PERRLA, no scleral icterus.
Neck: supple.
CV: remains RRR, +S1/S2, no m/r/g.
Resp: remains CTAB, no rales, wheezes, or rhonchi.
Abd: +BS, soft, NT, ND
Skin: No rashes.
Neuro: CN 2-12 intact, non-focal.
MSK: minimal R-sided CVA TTP
Psych: Normal mood and affect.
06/06/24 11:11 Feces/Stool Salmonella/Shigella Culture - Preliminary
Culture in Progress
06/06/24 11:11 Feces/Stool Campylobacter Culture - Preliminary
Culture in Progress
06/06/24 11:11 Feces/Stool Shiga Toxin Test - Final
No E. coli Shiga Toxin 1 or 2 detected.
06/04/24 18:18 Blood/Venous Blood Culture - Preliminary
No Growth in 48 hours- Final report to follow
06/04/24 18:18 Blood/Venous Blood Culture - Preliminary
No Growth in 48 hours- Final report to follow
06/06/24 11:11 Feces/Stool - Final
Negative for Norovirus GI and GII.
06/06/24 11:11 Feces/Stool Stool Leukocytes - Final
06/06/24 11:11 Feces/Stool C. difficile GDH Antigen & Toxins - Final
Negative for toxigenic C.difficile
06/04/24 14:19 Urine Urine Culture - Final
Escherichia coli
06/04/24 19:29 Nasal Swab Influenza Types A & B (BABS) - Final
Negative for Influenza A & B, NAAT
Negative results must be combined with clinical observations
and patient history.
Nucleic Acid Amplification test (NAAT)performed on the
[employer] NOW platform.
CT A/P: No hydronephrosis or obstructing renal calculus. There is a nonobstructing stone in the right kidney measuring 6.6 mm.
Acute Pyelonephritis:
-UCx with pansensitive E coli, BCxs NGTD
-no leukocytosis, now febrile
-check renal U/S, c/s Uro
-cont Rocephin
-cont pain control
Essential Hypertension:
-with hypertensive urgency
-increase Losartan to 100mg daily
-cont HCTZ
Other problems:
B/L glaucoma: drainage implant September 2022, continue brimonidine-timolol, brinzolamide, Vyzulta eyedrops
MAYRA: continue CPAP
Asthma and chronic bronchitis: continue Breo Ellipta
DM2: a1c 6.6%. diabetic diet/SSI/AccuChecks.
Incidental pancreatic cystic lesion: Annual MRI until age 82
Depression: continue Celexa
Morbid obesity due to excess calories
Pt's updated during the visit via speaker phone.
FULL/heparin
[2024-06-08 12:43] LABS: Glucose - Point of Care 128 mg/dl (70-99)
[2024-06-08 14:52] VITALS: BP 173/83
--- NOTE | 2024-06-08 16:10 | W.PN.URO.CBU ---
Today's Communication / Plan
-
continue present care
Assessment / Plan
-
most likely dx ois complicate uti getting better No indication of obstruction abscess also musculdskeletal apin
Diagnosis
-
Date of Service: June 08, 2024
-
Patient Diagnosis:
rt pyelo and fever 100.8 despite targeted abs Also diarrhea and non obstructing stone rt kidney
Post Op Day:
Subjective
-
fevr this a some flank pain but overall much better since admit
Objective
-
Vital Signs
Temp Pulse Resp BP Pulse Ox
98.6 F 70 16 173/83 93
06/08/24 14:52 06/08/24 14:52 06/08/24 14:52 06/08/24 14:52 06/08/24 14:52
Intake and Output
06/07/24 06/08/24 06/09/24
06:59 06:59 06:59
Intake Total 960 / 960 1200 / 1200
Balance 960 / 960 1200 / 1200
Intake:
Oral fluids 960 / 960 1200 / 1200
Other:
Number of approximated MODERATE 3 2
amounts of urine
Number of unmeasured liquid
stools
Rectum 1
Laboratory Results
06/08/24 06:18
06/08/24 06:18
Review of Systems
-
Constitutional: Fever
: Flank Pain
Physical Exam
-
General - well developed, well nourished, no acute distress non toxic
Chest - clear bilaterally
Abdomen - soft, non-tender, positive bowel sounds, no CVAT, no incisional pain or distention
Genitalia - normal
Rectal - normal
Skin - warm & dry with no rash
Neuro - AOx3, no motor deficits
Extremities - no clubbing, no cyanosis, no edema
Incision - clean, dry
Dressing - clean, dry, intact
Counseling
-
no changs
Care Review
Data Reviewed
Discussed with: Hospitalist and Nursing
CT Scan: Image Pers Reviewed
[2024-06-08 17:12] LABS: Glucose - Point of Care 122 mg/dl (70-99)
[2024-06-08] MEDS: STERILE WATER FOR INJECTION 20 ML IV (18:08)
[2024-06-08] MEDS: LOVENOX 40 MG SC (18:14)
[2024-06-08] MEDS: ROCEPHIN 2000 MG IV (18:14)
[2024-06-08] MEDS: XALATAN OPHTHALMIC SOLUTION 1 DROP BOTH EYES (21:43)
[2024-06-08 22:03] LABS: Glucose - Point of Care 119 mg/dl (70-99)
[2024-06-08 23:03] VITALS: BP 161/71
--- NOTE | 2024-06-09 05:01 | DOWNTIME ---
There was a [employer] Downtime on 06/09/2024 from 0100 to 06/10/2023 at 0420 . Downtime documentation of patient's care, including medication administrations, has been reconciled in the electronic record per guidelines. Refer to the
patient's paper chart under the miscellaneous tab to see printed paper medication records and downtime forms.
[2024-06-09 07:10] VITALS: BP 160/82
[2024-06-09 07:12] LABS: Glucose - Point of Care 142 mg/dl (70-99)
[2024-06-09] MEDS: NON-FORMULARY ITEM 1 UNIT INH (08:15)
[2024-06-09] MEDS: ALPHAGAN 0.2% EYE DROPS 1 DROP OPHTH (08:24)
[2024-06-09] MEDS: TIMOPTIC 0.5% OPHTHALMIC SOLUTION 1 DROP OPHTH (08:25)
[2024-06-09] MEDS: AZOPT 1% OPHTHALMIC SUSPENSION 1 DROP BOTH EYES (08:25)
[2024-06-09] MEDS: MAGNESIUM OXIDE 500 MG PO (08:26)
[2024-06-09] MEDS: COZAAR 100 MG PO (08:26)
[2024-06-09] MEDS: THERAGRAN 1 TABLET PO (08:26)
[2024-06-09] MEDS: VITAMIN D3 (cholecalciferol) 25 MCG PO (08:26)
[2024-06-09] MEDS: ASPIR LOW (ENTERIC COATED) 81 MG PO (08:26)
[2024-06-09 08:27] LABS: Hematocrit 38.7 % (37.0-47.0); Hemoglobin 12.9 g/dL (12.0-16.0); Mean Corp Hgb Conc. 33.3 g/dL (33.0-37.0); Mean Corpuscular Hgb 29.6 pg (27.0-31.0); Mean Corpuscular Volume 88.8 fL (81.0-99.0); Mean Platelet Volume 9.8 fL (7.4-10.4); Platelet Count 320 10^3/uL (130-400); Red Blood Cell Count 4.36 10^6/uL (4.20-5.40); Red Cell Dist. Width 13.7 % (11.5-14.5)
[2024-06-09] MEDS: ORETIC 25 MG PO (08:27)
[2024-06-09] MEDS: CELEXA 20 MG PO (08:27)
[2024-06-09 09:02] LABS: Blood Urea Nitrogen 18 mg/dl (7-17); Calcium 9.4 mg/dl (8.4-10.2); Carbon Dioxide 31 mmol/L (22-30); Chloride 98 mmol/L (98-107); Estimated Creatinine Clearance 80 ml/min; Glucose 143 mg/dl (70-99); Potassium 3.6 mmol/L (3.5-5.1); Sodium 137 mmol/L (135-145); eGFR > 60.00
--- NOTE | 2024-06-09 09:31 | W.PN.HOSP.TC ---
Today's Communication/Plan
-
Patient most likely to be discharged later today on antibiotics.
Assessment / Plan
Assessment / Plan
Assessment:
78-year-old female with a past medical history of hypertension, prediabetes, asthma, chronic bronchitis, sleep apnea, obesity, depression presented to the [place] ED complaining of right flank pain that came with a headache, fever, chills and
weakness. Patient had a CT abdomen in the ER that showed mild stranding of the right kidney likely secondary to pyelonephritis along with a nonobstructing stone in the right kidney with no hydronephrosis. Patient also has a history of right
ureteroscopy, laser lithotripsy, stone extraction with stent on 04/18/[address] Sanchez for calcium oxalate stones. Patient was started on IV antibiotics, IV fluids and supportive therapy. Patient continued to get better with treatment.
Patient underwent MRI of the abdomen due to an incidental finding on her pancreas. Found to have cystic foci within the pancreas likely to represent benign cystic masses. Was advised to follow-up and get MRI annually until age of 82 as long as
these remain stable. Patient has continued to feel better and says that she is feeling strong enough to go home today.
CT Abd/pel Without Iv Or Oral (06/04/2024):
There is no hydronephrosis or obstructing renal calculus. There is a nonobstructing stone in the right kidney measuring 6.6 mm.
Mild asymmetric stranding along the right kidney which is nonspecific although can be seen with infection. Recommend correlation with urinalysis.
Colonic diverticulosis.
1.6 cm cystic focus along the pancreatic tail which represent a sidebranch IPMN, pseudocyst or cystic neoplasm. Consider MRI abdomen for further evaluation.
MR Abdomen W/o & W Contrast (06/06/2024):
Cholelithiasis. There are no MR findings to suggest acute cholecystitis.
No evidence for biliary ductal dilation. No evidence for bile duct calculus.
Cystic foci within the pancreas, the largest in the distal tail the pancreas, with no evidence for enhancement. These likely represent benign cystic masses with main differential considerations of pseudocyst and/or intraductal papillary mucinous
neoplasms. Advise annual MR follow-up until the age of 80 years, as long as these remain stable.
Fatty infiltration the liver.
U/S Renal Only W/O Bladder (06/08/2024):
Findings: Right kidney measures 13.0 cm, and the left kidney measures 12.3 cm in length. Questionable mid pole right renal calculus measures 5 mm. No hydronephrosis or contour deforming solid renal mass.
Cholelithiasis noted.
Plan:
# Pyelonephritis with right flank pain
-Patient has more pain today than yesterday
-CT abdomen/pelvis findings as above
-Acute pyelonephritis most likely cause of symptoms
-Urine cultures positive for-E. coli
-History of lithotripsy in 2022
-Urine and blood culture sent
-Blood cultures negative
-Continue IV ceftriaxone, no IV fluids at this time
-Pain control with Toradol
-Due to continued right flank pain, will get ultrasound of the kidneys
-Ultrasound results as above
-Ultrasound did not show any acute findings
-Consult urology to help with further management, input appreciated
-Urology not worried about current condition, says pain will linger for around a week or so
-Fever has resolved and has not come back
# Diarrhea
-resolved
-Stool cultures negative for C. difficile and norovirus
-Salmonella/Shigella culture is negative
-Campylobacter cultures in progress
# Hypertension
-Patient's blood pressure not under control with current medications
-Dose of losartan increased to 100 mg daily, restarted HCTZ yesterday as well (will continue)
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
-continue brimonidine-timolol, brinzolamide, Vyzulta eyedrops
# Sleep apnea
-continue CPAP from home as possible, possibly causing her increased blood pressure
# Asthma and chronic bronchitis
-continue Breo Ellipta
# Diabetes
-diet controlled
-Hemoglobin A1c 6.6
-diet changed to diabetic diet
-SSI/Accuchecks initiated
# Incidental pancreatic cystic lesion
-MRI-cystic foci in pancreas no enhancement likely represent benign cystic masses pseudocyst or and or intraductal papillary mucinous neoplasm. Annual MRI until age 80
-Talked with patient regarding further follow-up
-Patient aware
# Depression
-continue Celexa
# Obesity with a BMI of 46
-Along with fatty liver disease
# Hypoalbuminemia
DVT prophylaxis-subcutaneous heparin
Full code
Anticipated Discharge: Today
Subjective/Interval History
-
Date of Service: June 09, 2024
Patient says that she is feeling much better, with some lingering right flank pain still. Does not report any fevers or chills or any abdominal pain. No nausea/vomiting or any diarrhea reported.
Objective Data
-
Labs:
Laboratory Results
06/09/24
07:12
WBC 7.0
Hgb 12.9
Hct 38.7
Plt Count 320
Sodium 137
Potassium 3.6
Chloride 98
Carbon Dioxide 31 H
BUN 18 H
Creatinine 0.8
Glucose 143 H
Calcium 9.4
Vital Signs:
Vital Signs
Temp Pulse Resp BP Pulse Ox
98.6 F 78 16 160/82 93
06/09/24 07:10 06/09/24 08:27 06/09/24 08:17 06/09/24 08:27 06/09/24 08:17
I&O
06/08/24 06/09/24 06/10/24
06:59 06:59 06:59
Intake Total 1200 / 1200 1010 / 1010
Balance 1200 / 1200 1010 / 1010
Review of Systems
-
History Source: Patient
Constitutional: Denies Fever or Chills
EENT: Reports No Symptoms Reported
Respiratory: Denies Cough or Wheezing
Cardiac: Denies Chest Pain, Palpitations or Syncope
Abdomen/GI: Denies Abdominal Pain, Nausea, Vomiting or Diarrhea
Genitourinary: Reports Flank Pain (Right-sided, 6 out of 10 in intensity); Denies Dysuria, Incontinence or Difficulty Voiding
Skin: Reports No Symptoms
Neuro: Reports No Symptoms
Hematologic / Lymphatic: Reports No Symptoms
Physical Exam
-
General: Well Developed, Well Nourished, No Apparent Distress, Comfortable and Conversant
HEENT: Normocephalic and Atraumatic
Respiratory: Clear to Auscultation and Non Labored Respirations
Cardiac: Regular Rhythm and S1/S2
GI: Soft, Nontender and Nondistended
Genito-urinary: Costovertebral Angle Tend (No pain upon palpation, right flank 5-6/10 intensity pain that is not worsened by palpation)
Musculoskeletal: No Clubbing, No Cyanosis and No Edema
Skin: Warm
Neuro: Awake, Alert and Oriented
Psych: Calm
Data Reviewed
-
Labs: Labs Reviewed by me, Discussed with Physician and Discussed with Patient
--- NOTE | 2024-06-09 11:28 | W.PN.UPDATE ---
Update Note
Progress Note Update
I saw and evaluated the patient. I reviewed the resident�s note and agree with findings and plan as documented in the resident�s note.
No new complaints. Patient has right flank pain when she moves.
Gen: NAD, AAOx3.
Eyes: EOMI, PERRLA, no scleral icterus.
Neck: supple.
CV: Continues to remain RRR, +S1/S2, no m/r/g.
Resp: Continues to remain CTAB, no rales, wheezes, or rhonchi.
Abd: +BS, soft, NT, ND
Skin: No rashes.
Neuro: CN 2-12 intact, non-focal.
Psych: Normal mood and affect.
06/04/24 18:18 Blood/Venous Blood Culture - Preliminary
No Growth in 4 days- Final report to follow
06/04/24 18:18 Blood/Venous Blood Culture - Preliminary
No Growth in 4 days- Final report to follow
06/06/24 11:11 Feces/Stool Salmonella/Shigella Culture - Final
No Salmonella, Shigella, Aeromonas or Plesiomonas species
isolated.
06/06/24 11:11 Feces/Stool Campylobacter Culture - Final
No Campylobacter species isolated.
06/06/24 11:11 Feces/Stool Shiga Toxin Test - Final
No E. coli Shiga Toxin 1 or 2 detected.
06/06/24 11:11 Feces/Stool - Final
Negative for Norovirus GI and GII.
06/06/24 11:11 Feces/Stool Stool Leukocytes - Final
06/06/24 11:11 Feces/Stool C. difficile GDH Antigen & Toxins - Final
Negative for toxigenic C.difficile
06/04/24 14:19 Urine Urine Culture - Final
Escherichia coli
06/04/24 19:29 Nasal Swab Influenza Types A & B (BABS) - Final
Negative for Influenza A & B, NAAT
Negative results must be combined with clinical observations
and patient history.
Nucleic Acid Amplification test (NAAT)performed on the
[employer] NOW platform.
CT A/P: No hydronephrosis or obstructing renal calculus. There is a nonobstructing stone in the right kidney measuring 6.6 mm.
Renal U/S 06/09/24: Questionable small nonobstructing right renal calculus. No hydronephrosis. Otherwise unremarkable renal ultrasound, as detailed above.
Acute Pyelonephritis:
-UCx with pansensitive E coli, BCxs NGTD
-no leukocytosis, had one isolated fever, now afebrile
-appreciate Uro
-has been on Rocephin, d/c on Keflex to complete 10 days abx
-cont pain control
Essential Hypertension:
-with hypertensive urgency
-Losartan increase to 100mg daily
-start Norvasc 5mg daily
-cont HCTZ
Other problems:
B/L glaucoma: drainage implant September 2022, continue brimonidine-timolol, brinzolamide, Vyzulta eyedrops
MAYRA: continue CPAP
Asthma and chronic bronchitis: continue Breo Ellipta
DM2: a1c 6.6%. diabetic diet/SSI/AccuChecks.
Incidental pancreatic cystic lesion: Annual MRI until age 82
Depression: continue Celexa
Morbid obesity due to excess calories
Medically cleared for d/c.
FULL/heparin
Total time spent on d/c = 31 min. This included today's physical exam, progress note, review of laboratory and diagnostic data, preparation of discharge documents and prescriptions, and discussions about the pt's hospital course and discharge plan
with the patient and other medical aides teacher involved in the patient's care.
[2024-06-09 12:08] LABS: Glucose - Point of Care 106 mg/dl (70-99)
--- NOTE | 2024-06-09 12:08 | CM ---
Patient seen at bedside with & daughter
IMM explained & signed.
PLAN: Home, no needs
to transport
[2024-06-09] MEDS: ROCEPHIN 2000 MG IV (13:17)
[2024-06-09] MEDS: STERILE WATER FOR INJECTION 20 ML IV (13:18)
--- NOTE | 2024-06-09 13:26 | W.DCSUMMARY ---
Discharge Summary
Discharge Data
Date of Admission: 06/04/24
Date of Discharge: 06/09/24
-
Pending Results: No
Hospital Course
Discharging Physician : Dr. Mor Rashid, Dr. Luis A Ch
�
Disposition�:�Home
�
Primary�care�physician�: Bridgett Ramirez
�
Principal�Discharge�Diagnosis�: Acute pyelonephritis
�
Chronic�Discharge�Diagnosis:�
Essential hypertension
MAYRA
Asthma chronic bronchitis
Diabetes mellitus 2
Incidental pancreatic cystic lesion
Depression
Morbid obesity due to excess calories
Hospital�Course�:�
78-year-old female with a past medical history of hypertension, prediabetes, asthma, chronic bronchitis, sleep apnea, obesity, depression presented to the [facility] ED on 06/04/2024 complaining of right flank pain that came with a headache, fever,
chills and weakness. Patient had a CT abdomen in the ER that showed mild stranding of the right kidney likely secondary to pyelonephritis along with a nonobstructing stone in the right kidney with no hydronephrosis. Patient also has a history of
right ureteroscopy, laser lithotripsy, stone extraction with stent on 04/18/[address] Sanchez for calcium oxalate stones. Blood and urine cultures were taken at this time and patient was started on IV antibiotics, IV fluids and supportive
therapy. Patient was admitted to [facility] for further management. Patient continued to get better with antibiotic treatment. Patient underwent MRI of the abdomen due to an incidental finding on her pancreas on the CT abdomen. She was found to
have cystic foci within the pancreas likely to represent benign cystic masses. Was advised to follow-up and get MRI annually until age of 82 as long as these remain stable. Patient was afebrile except for 1 instance of fever which was managed with
Tylenol. Urology was consulted after patient had fever again along with continued right flank pain, but no further interventions were suggested by them at this time. Patient has continued to feel better with occasional right flank pain and says
that she is feeling strong enough to go home today. Patient received her sixth dose of ceftriaxone today and will continue taking antibiotics for 4 more days to complete a 10-day course. Will be switched to cephalexin and will take that 500 mg 4
times daily for 4 more days. During her stay patient's hypertension was managed well with her current medications so her medications were changed. Her losartan was increased to 100 mg daily, and amlodipine 5 mg daily was added. She will also to
continue her hydrochlorothiazide at 25 mg. Patient to follow-up with PCP for further management within 1 week.
�
�
Important�imaging�findings�:��
CT Abd/pel Without Iv Or Oral (06/04/2024):
There is no hydronephrosis or obstructing renal calculus. There is a nonobstructing stone in the right kidney measuring 6.6 mm.
Mild asymmetric stranding along the right kidney which is nonspecific although can be seen with infection. Recommend correlation with urinalysis.
Colonic diverticulosis.
1.6 cm cystic focus along the pancreatic tail which represent a sidebranch IPMN, pseudocyst or cystic neoplasm. Consider MRI abdomen for further evaluation.
MR Abdomen W/o & W Contrast (06/06/2024):
Cholelithiasis. There are no MR findings to suggest acute cholecystitis.
No evidence for biliary ductal dilation. No evidence for bile duct calculus.
Cystic foci within the pancreas, the largest in the distal tail the pancreas, with no evidence for enhancement. These likely represent benign cystic masses with main differential considerations of pseudocyst and/or intraductal papillary mucinous
neoplasms. Advise annual MR follow-up until the age of 80 years, as long as these remain stable.
Fatty infiltration the liver.
U/S Renal Only W/O Bladder (06/08/2024):
Findings: Right kidney measures 13.0 cm, and the left kidney measures 12.3 cm in length. Questionable mid pole right renal calculus measures 5 mm. No hydronephrosis or contour deforming solid renal mass.
Cholelithiasis noted.
�
Discharge Plan
-
Patient Disposition: Home (Routine Discharge)
Discharge Diagnosis/Procedures: Acute pyelonephritis
Essential hypertension
MAYRA
Asthma chronic bronchitis
Diabetes mellitus 2
Incidental pancreatic cystic lesion
Depression
Morbid obesity due to excess calories
Condition: Fair
Diet: Diabetic, Carb Controlled
Activity: No restrictions
Driving Restrictions: As prior to admission
Specialty Instructions: Weigh Daily- Call MD for wt gain/loss 3 lbs overnight/5 lbs in 1 week
Referrals:
Bridgett Ramirez MD [Family Provider] - in less than 1 week
Additional Discharge Medication Instructions: Start 1 Tablet Amlodipine 5 mg Once Daily
Take 1 Tablet Cephalexin 4 times daily for 4 days starting tomorrow
Take 1 Tablet Hydrocholorothiazide 25mg once daily
Take 1 Tablet Losartan 100mg once daily
Follow up with PCP within 1 week
Follow up with PCP regarding Incidental Pancreatic Cystic Lesion (Recommended Annual MRI until Age 80)
Prescriptions:
New
hydrochlorothiazide 25 mg Tablet
25 mg PO DAILY 30 Days Qty: 30 0RF
losartan 100 mg Tablet
100 mg PO DAILY 30 Days Qty: 30 0RF
amlodipine [Norvasc] 5 mg tablet
5 mg PO DAILY 30 Days Qty: 30 0RF
cephalexin 500 mg capsule
500 mg PO QID Qty: 16 0RF
Continued
citalopram 20 MG tablet
20 mg PO DAILY
cholecalciferol (vitamin D3) 1,000 UNITS tablet
1,000 units PO DAILY
brinzolamide 1 % Drops,Suspension
1 drp BOTH EYES TID
fluticasone furoate-vilanterol [Breo Ellipta] 200-25 mcg/dose Blister With Device
1 inh INHALATION R DAILY
therapeutic multivitamin Tablet
1 tab PO DAILY
aspirin 81 mg Tablet,Delayed Release (Dr/Ec)
81 mg PO DAILY
magnesium oxide 500 mg magnesium Tablet
500 mg PO DAILY
brimonidine-timolol 0.2-0.5 % Drops
1 drp BOTH EYES BID
Vyzulta 0.024 % Drops
1 drp BOTH EYES HS
Discontinued
omega 2-vuy-jsp-fish oil [Fish Oil] 1,000 mg (120 mg-180 mg) Capsule
1 cap PO DAILY
losartan-hydrochlorothiazide 50-12.5 mg Tablet
1 tab PO DAILY
Discharge Orders:
Discharge Patient (As Directed); Ordered 06/09/24
Ordered By: Luis A Ch
Discharge Date and Time
Print Language: WOLOF
--- NOTE | 2024-06-09 13:32 | W.PN.URO.CBU ---
Today's Communication / Plan
-
home on po abs
Assessment / Plan
-
most likely dx ois complicate uti getting better No indication of obstruction abscess also musculdskeletal apin
Diagnosis
-
Date of Service: June 09, 2024
-
Patient Diagnosis:
Post Op Day:
Patient Diagnosis:
rt pyelo and fever 100.8 despite targeted abs Also diarrhea and non obstructing stone rt kidney
Post Op Day:
Subjective
-
no fever mild muscul o pain
Objective
-
Vital Signs
Temp Pulse Resp BP Pulse Ox
98.6 F 78 16 160/82 93
06/09/24 07:10 06/09/24 08:27 06/09/24 08:17 06/09/24 08:27 06/09/24 09:58
Intake and Output
06/08/24 06/09/24 06/10/24
06:59 06:59 06:59
Intake Total 1200 / 1200 1010 / 1010
Balance 1200 / 1200 1010 / 1010
Intake:
Oral fluids 1200 / 1200 1010 / 1010
Other:
Number of approximated MODERATE 2 3
amounts of urine
How many times incontinent 2
MODERATE amount urine
Number of unmeasured liquid
stools
Rectum 1
Laboratory Results
06/09/24 07:12
06/09/24 07:12
Review of Systems
-
: No Symptoms
Physical Exam
-
General - well developed, well nourished, no acute distress
Chest - clear bilaterally
Abdomen - soft, non-tender, positive bowel sounds, no CVAT, no incisional pain or distention
Genitalia - normal
Rectal - normal
Skin - warm & dry with no rash
Neuro - AOx3, no motor deficits
Extremities - no clubbing, no cyanosis, no edema
Incision - clean, dry
Dressing - clean, dry, intact
Care Review
Data Reviewed
Discussed with: Hospitalist and Nursing
[2024-06-09 14:03] VITALS: BP 153/78
== END 2024-06-09 14:33 | disposition home or self-care (01) | DRG 690 ==
LOC: 2 NORTH 19:47
PROVIDERS: Clinical Nurse Specialist Family Health; Student in an Organized Health Care Education/Training Program; ADMITTING PHYSICIAN Internal Medicine; ATTENDING PHYSICIAN Internal Medicine; CONSULT PHYSICIAN Specialist; EMERGENCY PHYSICIAN Emergency Medicine; FAMILY PHYSICIAN Family Medicine
DX: N10 Acute pyelonephritis (principal); K86.2 Cyst of pancreas; Z68.42 Body mass index [BMI] 45.0-49.9, adult; I10 Essential (primary) hypertension; G47.33 Obstructive sleep apnea (adult) (pediatric); J42 Unspecified chronic bronchitis; J45.909 Unspecified asthma, uncomplicated; E11.9 Type 2 diabetes mellitus without complications; F32.A Depression, unspecified; E66.01 Morbid (severe) obesity due to excess calories; Z11.52 Encounter for screening for COVID-19; N20.0 Calculus of kidney; K57.30 Diverticulosis of large intestine without perforation or abscess without bleeding; K80.20 Calculus of gallbladder without cholecystitis without obstruction; K76.0 Fatty (change of) liver, not elsewhere classified; H40.9 Unspecified glaucoma; E88.09 Other disorders of plasma-protein metabolism, not elsewhere classified; H81.10 Benign paroxysmal vertigo, unspecified ear; Z96.652 Presence of left artificial knee joint; E21.3 Hyperparathyroidism, unspecified; Z90.710 Acquired absence of both cervix and uterus; Z79.82 Long term (current) use of aspirin; K76.89 Other specified diseases of liver; F41.9 Anxiety disorder, unspecified; Z79.899 Other long term (current) drug therapy; E83.42 Hypomagnesemia; B96.20 Unspecified Escherichia coli [E. coli] as the cause of diseases classified elsewhere; Z79.51 Long term (current) use of inhaled steroids
CPT/HCPCS: 74176; 74183; 76775; 80048; 80053; 81003; 81015; 82962; 83036; 83690; 85025; 85027; 87040; 87045; 87046; 87077; 87086; 87088; 87186; 87324; 87427; 87449; 87502; 87798; 87811; 89055; 94640; 96361; 96374; 96375; 99284; A9575

== ENCOUNTER → 2024-07-13 08:56 | Outpatient (REF) | payer MEDICARE, OTHER, SELFPAY ==
[2024-07-13 09:46] LABS: Ionized Calcium 1.21 mMOL/L (1.15-1.33)
[2024-07-13 10:27] LABS: ALT (SGPT) 42 U/L (0-35); AST (SGOT) 45 U/L (14-36); Albumin 3.9 g/dl (3.5-5.0); Alkaline Phosphatase 55 U/L (38-126); Blood Urea Nitrogen 18 mg/dl (7-17); Calcium 9.7 mg/dl (8.4-10.2); Carbon Dioxide 26 mmol/L (22-30); Chloride 106 mmol/L (98-107); Glucose 152 mg/dl (70-99); Potassium 3.9 mmol/L (3.5-5.1); Sodium 141 mmol/L (135-145); Total Bilirubin 0.4 mg/dl (0.2-1.3); Total Protein 6.9 g/dl (6.3-8.2); eGFR > 60.00
[2024-07-13 10:46] LABS: Vitamin D, 25-OH*** 38.8 ng/mL (30-80)
[2024-07-13 11:06] LABS: Intact PTH 77.8 pg/ml (13.6-85.8)
== END ==
LOC: REG 08:56
PROVIDERS: ATTENDING PHYSICIAN Internal Medicine Endocrinology, Diabetes & Metabolism; FAMILY PHYSICIAN Family Medicine
DX: E83.52 Hypercalcemia (principal); E55.9 Vitamin D deficiency, unspecified; E34.9 Endocrine disorder, unspecified; Z78.0 Asymptomatic menopausal state
CPT/HCPCS: 36415; 80053; 82306; 82330; 83970

== ENCOUNTER → 2024-08-04 13:04 | Outpatient (REF) | payer MEDICARE, OTHER, SELFPAY | LOC: RAD 13:04 | PROVIDERS: ATTENDING PHYSICIAN Surgery; FAMILY PHYSICIAN Family Medicine | DX: N20.0 Calculus of kidney (principal) | CPT/HCPCS: 76775 ==

== ENCOUNTER → 2024-08-20 14:00 | Outpatient (REF) | payer MEDICARE, OTHER, SELFPAY | LOC: RCS 14:00 | PROVIDERS: ATTENDING PHYSICIAN Orthopaedic Surgery Hand Surgery; FAMILY PHYSICIAN Family Medicine | DX: Z01.818 Encounter for other preprocedural examination (principal) | CPT/HCPCS: 93005 ==

== ENCOUNTER → 2024-12-07 08:27 | Outpatient (REF) | payer MEDICARE, OTHER, SELFPAY ==
[2024-12-07 10:02] LABS: Hematocrit 41.7 % (37.0-47.0); Hemoglobin 13.5 g/dL (12.0-16.0); Mean Corp Hgb Conc. 32.4 g/dL (33.0-37.0); Mean Corpuscular Volume 92.5 fL (81.0-99.0); Nucleated Red Blood Cells % 0 %; Platelet Count 231 10^3/uL (130-400); Red Cell Dist. Width 14.0 % (11.5-14.5)
[2024-12-07 11:05] LABS: ALT (SGPT) 37 U/L (0-35); AST (SGOT) 31 U/L (14-36); Albumin 3.8 g/dl (3.5-5.0); Alkaline Phosphatase 51 U/L (38-126); Blood Urea Nitrogen 21 mg/dl (7-17); Calcium 9.6 mg/dl (8.4-10.2); Carbon Dioxide 32 mmol/L (22-30); Chloride 103 mmol/L (98-107); Glucose 127 mg/dl (70-99); HDL Cholesterol 46 mg/dl; LDL Cholesterol, Calculated 90 mg/dl; Potassium 4.4 mmol/L (3.5-5.1); Sodium 141 mmol/L (135-145); Total Protein 6.9 g/dl (6.3-8.2); Very Low Density Lipoprotein 25 mg/dl (0-30); eGFR > 60.00
[2024-12-07 11:27] LABS: TSH 1.46 uIU/ml (0.47-4.68)
[2024-12-07 11:50] LABS: Glycohemoglobin (HgbA1c) 6.8 % (4.0-5.6)
[2024-12-07 13:51] LABS: Microalb - Urine Creatinine 81.000 mg/dl
[2024-12-07 13:56] LABS: Microalbumin, Random Urine 1.2 mg/dl (0.6-1.7)
== END ==
LOC: REG 08:27
PROVIDERS: ATTENDING PHYSICIAN Family Medicine
DX: R73.03 Prediabetes (principal); I10 Essential (primary) hypertension; Z00.00 Encounter for general adult medical examination without abnormal findings
CPT/HCPCS: 36415; 80053; 80061; 82043; 82570; 83036; 84443; 85025

== ENCOUNTER → 2024-12-24 07:44 | Outpatient (REF) | payer MEDICARE, OTHER, SELFPAY | LOC: HWWDC 07:44 | PROVIDERS: ATTENDING PHYSICIAN Internal Medicine Endocrinology, Diabetes & Metabolism; FAMILY PHYSICIAN Family Medicine | DX: Z78.0 Asymptomatic menopausal state (principal); E04.2 Nontoxic multinodular goiter; Z12.31 Encounter for screening mammogram for malignant neoplasm of breast | CPT/HCPCS: 76536; 77080 ==